=== PATIENT | male | born 1945 | race Two or more races ===

== ENCOUNTER 2022-01-31 17:23 | Inpatient (IN) | payer OTHER ==
[~2022-01-31] VITALS: Ht 152.4 cm; Wt 64.4 kg
[2022-01-31 19:36] LABS: Basophils # (auto) 0 10 ^3/uL (0-0.2); Lymphocytes # (auto) 1.1 10 ^3/uL (0.4-5.4); Lymphocytes % (auto) 20.9 % (10.0-50.0); Nucleated Red Blood Cells % 0.1 %
[2022-01-31 19:37] LABS: Basophils % (auto) 0.5 % (0.0-2.0); Eosinophils # (auto) 0.2 10 ^3/uL (0-0.8); Eosinophils % (auto) 4.4 % (0.0-7.0); Hematocrit 37.3 % (41.0-53.0); Mean Corpuscular Hemoglobin 23.7 pg (28.0-32.0); Mean Corpuscular Volume 73.9 fL (80.0-100.0); Monocytes # (auto) 0.5 10 ^3/uL (0-1.3); Monocytes % (auto) 9.9 % (0.0-12.0); Neutrophils # (auto) 3.3 10 ^3/uL (1.6-8.6); Neutrophils % (auto) 64.3 % (37.0-80.0); Red Blood Cells 5.05 10^6/uL (4.5-5.90); White Blood Cell 5.1 10^3/uL (4.4-10.8)
[2022-01-31 19:43] LABS: Red Cell Distribution Width 21.4 % (11.8-14.3)
[2022-01-31 19:48] LABS: Albumin 3.1 g/dL (3.4-5.0); Calcium 8.8 mg/dL (8.5-10.1); Potassium 4.4 mmol/L (3.5-5.1)
[2022-01-31 19:54] LABS: BUN/Creatinine Ratio 21.8; Bilirubin, Total 0.5 mg/dL (0.2-1.0); Total Protein 7.8 g/dL (6.4-8.2)
[2022-01-31 20:07] LABS: INR 1.12 (0.9-1.15); Partial Thromboplastin Time 29.1 sec (23.6-33.0)
[2022-01-31] MEDS ORDERED: ASPirin 81 mg TAB PO ONE (20:15)
[2022-01-31] MEDS ORDERED: cefTRIAXone 1GM/50ML D5W 50 ML IV ONE (20:15)
[2022-01-31] MEDS ORDERED: AZITHROMYCIN 250 MG TAB PO ONE (20:15)
[2022-01-31] MEDS ORDERED: IOHEXOL 350 MG/ML 100ML IJ ONE ×2 (20:16→22:24)
[2022-01-31] MEDS ORDERED: LIDOCAINE 2%HCL (LOCAL ANESTH.) INJ 10ml MDV ONE (22:24)
[2022-01-31] MEDS ORDERED: ATROPINE SULF 1 MG/10ml SYR ONE (22:36)
[2022-01-31] MEDS ORDERED: fentaNYL CITRATE 100 MCG/2 ML VL ONE (22:36)
[2022-01-31] MEDS ORDERED: ANGIOMAX 250 MG VIAL IV ONE ×2 (22:36→23:55)
[2022-01-31] MEDS ORDERED: EPINEPHrine HCL 1 MG/10 ML SYRG ONE (22:37)
[2022-01-31] MEDS ORDERED: IODIXANOL 320MG/ML 100ML BTL IV ONE (22:37)
[2022-01-31] MEDS ORDERED: MIDAZOLAM HCL 2MG/2ML 2ml VIAL (1mg/ml) ONE (22:37)
[2022-01-31] MEDS ORDERED: SODIUM CHL 0.9% 50 ML ONE ×2 (22:37→23:55)
[2022-01-31 22:38] LABS: Urine Bacteria NONE SEEN /hpf (None Seen); Urine Blood Negative /uL (Negative); Urine Specific Gravity 1.037 (1.001-1.035); Urine WBC 2 /hpf (0 - 3)
[2022-02-01] MEDS ORDERED: CLOPIDOGREL 300 MG TAB ONE (00:15)
[2022-02-01] MEDS ORDERED: ONDANSETRON HCL 4 MG/2 ML VIAL IV PRN (00:45)
[2022-02-01] MEDS ORDERED: ACETAMINOPHEN 500 MG TAB PO PRN (00:45)
[2022-02-01] MEDS ORDERED: DEXTROSE (50%) 50ML SYRG IV PRN (00:45)
[2022-02-01] MEDS ORDERED: SOD CHL 0.45% 1,000 ML IV SCH (00:45)
[2022-02-01] MEDS ORDERED: HYDROcodone-ACET 5/325MG TAB PO PRN (00:45)
[2022-02-01] MEDS ORDERED: cefTRIAXone 1GM/50ML D5W 50 ML IV SCH ×2 (01:30→15:30)
[2022-02-01] MEDS ORDERED: hydrALAZINE HCL 20 MG/ML VL IV PRN (01:45)
[2022-02-01] MEDS ORDERED: AZITHROMYCIN 500MG/ 250ML 250 ML IV SCH (02:00)
[2022-02-01 05:47] VITALS: BP 140/90
[2022-02-01 06:25] LABS: Basophils # (auto) 0 10 ^3/uL (0-0.2); Eosinophils # (auto) 0.1 10 ^3/uL (0-0.8)
[2022-02-01 06:29] LABS: Basophils % (auto) 0.4 % (0.0-2.0); Eosinophils % (auto) 2.7 % (0.0-7.0); Hematocrit 36.3 % (41.0-53.0); Lymphocytes # (auto) 0.8 10 ^3/uL (0.4-5.4); Lymphocytes % (auto) 17.2 % (10.0-50.0); Mean Corpuscular Hemoglobin 23.9 pg (28.0-32.0); Mean Corpuscular Hgb Conc. 32.5 g/dL (32.0-36.0); Monocytes # (auto) 0.5 10 ^3/uL (0-1.3); Monocytes % (auto) 10.1 % (0.0-12.0); Neutrophils # (auto) 3.3 10 ^3/uL (1.6-8.6); Neutrophils % (auto) 69.6 % (37.0-80.0); Nucleated Red Blood Cells % 0.5 %; Red Blood Cells 4.94 10^6/uL (4.5-5.90); White Blood Cell 4.8 10^3/uL (4.4-10.8)
[2022-02-01 06:36] LABS: Red Cell Distribution Width 21.4 % (11.8-14.3)
[2022-02-01 06:37] LABS: Hemoglobin 11.8 g/dL (13.5-17.5); Mean Corpuscular Volume 73.5 fL (80.0-100.0)
[2022-02-01] MEDS: ACCU-CHEK COMFORT CURVE STRIP VI SCH ×4 (06:54→21:47)
[2022-02-01] MEDS: InsuLIN REG 1unit/0.01ml Soln (100units/ml) SC SCH ×3 (06:58→16:58)
[2022-02-01 08:15] LABS: Albumin 2.8 g/dL (3.4-5.0); BUN/Creatinine Ratio 23.2; Calcium 8.7 mg/dL (8.5-10.1); Potassium 4.8 mmol/L (3.5-5.1)
[2022-02-01 08:18] LABS: Bilirubin, Total 0.5 mg/dL (0.2-1.0); Total Protein 7.6 g/dL (6.4-8.2)
[2022-02-01 08:40] VITALS: BP 135/81
[2022-02-01] MEDS: ATORVASTATIN 20 MG TAB PO SCH (10:38)
[2022-02-01] MEDS: METOPROLOL TARTRATE 25 MG TAB PO SCH (10:39)
[2022-02-01] MEDS: ASPirin 81 mg TAB PO SCH (10:40)
[2022-02-01] MEDS: FUROSEMIDE 20 MG/2 ML VIAL IV SCH (10:41)
[2022-02-01] MEDS: PANTOPRAZOLE 40 MG TAB PO SCH ×2 (10:42→21:47)
[2022-02-01] MEDS: CLOPIDOGREL BISULFATE 75 MG TAB PO SCH (10:42)
[2022-02-01] MEDS ORDERED: TAMS0.4C36 PO (11:44)
[2022-02-01] MEDS ORDERED: AML5T PO (11:44)
[2022-02-01] MEDS ORDERED: METF-371 PO (11:46)
[2022-02-01] MEDS ORDERED: ENAL10TA12 PO (11:46)
[2022-02-01] MEDS ORDERED: CYA100I PO (11:47)
[2022-02-01 12:40] VITALS: BP 130/78
[2022-02-01 17:00] VITALS: BP 115/72
[2022-02-01] MEDS ORDERED: TAMSULOSIN HYDROCHLORIDE 0.4 MG CAP PO SCH (18:00)
[2022-02-01 21:56] VITALS: BP 127/71
[2022-02-01] MEDS ORDERED: InsuLIN REG 1unit/0.01ml Soln (100units/ml) SC SCH (22:00)
[2022-02-02] MEDS ORDERED: AZITHROMYCIN 500MG/ 250ML 250 ML IV SCH (04:00)
[2022-02-02 04:43] VITALS: BP 130/76
[2022-02-02 06:21] LABS: Basophils # (auto) 0 10 ^3/uL (0-0.2); Basophils % (auto) 0.6 % (0.0-2.0); Eosinophils # (auto) 0.3 10 ^3/uL (0-0.8); Hemoglobin 12.2 g/dL (13.5-17.5); Monocytes # (auto) 0.5 10 ^3/uL (0-1.3); Neutrophils # (auto) 2.5 10 ^3/uL (1.6-8.6); White Blood Cell 4.5 10^3/uL (4.4-10.8)
[2022-02-02 06:23] LABS: Eosinophils % (auto) 7.1 % (0.0-7.0); Hematocrit 37.5 % (41.0-53.0); Lymphocytes # (auto) 1.2 10 ^3/uL (0.4-5.4); Lymphocytes % (auto) 25.5 % (10.0-50.0); Mean Corpuscular Hemoglobin 23.9 pg (28.0-32.0); Mean Corpuscular Hgb Conc. 32.6 g/dL (32.0-36.0); Mean Corpuscular Volume 73.5 fL (80.0-100.0); Monocytes % (auto) 10.7 % (0.0-12.0); Neutrophils % (auto) 56.1 % (37.0-80.0); Nucleated Red Blood Cells % 0.1 %; Red Blood Cells 5.09 10^6/uL (4.5-5.90); Red Cell Distribution Width 21.5 % (11.8-14.3)
[2022-02-02] MEDS: ACCU-CHEK COMFORT CURVE STRIP VI SCH ×3 (06:31→17:25)
[2022-02-02] MEDS: InsuLIN REG 1unit/0.01ml Soln (100units/ml) SC SCH ×3 (06:33→17:33)
[2022-02-02 09:00] VITALS: BP 119/67
[2022-02-02] MEDS: ATORVASTATIN 20 MG TAB PO SCH (10:00)
[2022-02-02 10:11] LABS: Potassium 3.5 mmol/L (3.5-5.1)
[2022-02-02 10:12] LABS: Albumin 2.9 g/dL (3.4-5.0); BUN/Creatinine Ratio 22.9; Bilirubin, Total 0.5 mg/dL (0.2-1.0); Calcium 8.5 mg/dL (8.5-10.1); Total Protein 7.1 g/dL (6.4-8.2)
[2022-02-02] MEDS: CLOPIDOGREL BISULFATE 75 MG TAB PO SCH (10:30)
[2022-02-02] MEDS: FUROSEMIDE 20 MG/2 ML VIAL IV SCH (10:30)
[2022-02-02] MEDS: ASPirin 81 mg TAB PO SCH (10:30)
[2022-02-02] MEDS: PANTOPRAZOLE 40 MG TAB PO SCH (10:30)
[2022-02-02] MEDS: METOPROLOL TARTRATE 25 MG TAB PO SCH (10:30)
[2022-02-02] MEDS ORDERED: FUROSEMIDE 20 MG/2 ML VIAL IV ONE (11:30)
[2022-02-02] MEDS ORDERED: POTASSIUM CHL 20 Meq TABLET PO ONE (11:30)
[2022-02-02] MEDS ORDERED: ATOR20TA50 PO (11:39)
[2022-02-02] MEDS ORDERED: ASPI1CHW15 PO (11:39)
[2022-02-02] MEDS ORDERED: CLOP75TA70 PO (11:39)
[2022-02-02] MEDS ORDERED: METO25TA36 PO (11:47)
[2022-02-02] MEDS ORDERED: POTA1TAB4 PO (11:47)
[2022-02-02] MEDS ORDERED: FURO1TAB33 PO (11:47)
[2022-02-02 13:52] VITALS: BP 126/72
[2022-02-02 17:11] VITALS: BP 121/68
== END 2022-02-02 17:30 | disposition home or self-care (01) | DRG 246 ==
LOC: ER 17:23 → TELE 02-01 00:34 → TELE-EAST 02-01 01:47
PROVIDERS: ADMIT Specialist; ATTEND Internal Medicine
PROC: 027135Z Dilation of Coronary Artery, Two Arteries with Two Drug-eluting Intraluminal Devices, Percutaneous Approach (ICD-10-PCS; principal; 2022-01-31)
PROC: B241ZZ3 Ultrasonography of Multiple Coronary Arteries, Intravascular (ICD-10-PCS; 2022-01-31)
PROC: 4A023N7 Measurement of Cardiac Sampling and Pressure, Left Heart, Percutaneous Approach (ICD-10-PCS; 2022-01-31)
PROC: B41F0ZZ Fluoroscopy of Right Lower Extremity Arteries using High Osmolar Contrast (ICD-10-PCS; 2022-01-31)
PROC: B41FYZZ Fluoroscopy of Right Lower Extremity Arteries using Other Contrast (ICD-10-PCS; 2022-01-31)
PROC: B2111ZZ Fluoroscopy of Multiple Coronary Arteries using Low Osmolar Contrast (ICD-10-PCS; 2022-01-31)
PROC: 02703ZZ Dilation of Coronary Artery, One Artery, Percutaneous Approach (ICD-10-PCS; 2022-02-01)
DX: I21.3 ST elevation (STEMI) myocardial infarction of unspecified site (principal); I50.41 Acute combined systolic (congestive) and diastolic (congestive) heart failure; E11.9 Type 2 diabetes mellitus without complications; N40.0 Benign prostatic hyperplasia without lower urinary tract symptoms; K74.60 Unspecified cirrhosis of liver; Z20.822 Contact with and (suspected) exposure to COVID-19; I11.0 Hypertensive heart disease with heart failure; Z79.84 Long term (current) use of oral hypoglycemic drugs
CPT/HCPCS: 36415; 71045; 71275; 75710; 76705; 80053; 81001; 82962; 83036; 83880; 84484; 85025; 85610; 85730; 86850; 86900; 86901; 92920; 92928; 92929; 92978; 93005; 93306; 93458; 96361; 96365; 96372; 96375; 99152; 99153; C1874; C1887; G0378; J0696; J1815; J2001; J2250; Q9967

== ENCOUNTER 2022-05-22 09:53 | Inpatient (IN) | payer OTHER ==
[~2022-05-22] VITALS: Ht 167.6 cm; Wt 65.9 kg
[~2022-05-22 09:53] MED LIST: AML5T PO; ASPI1CHW15 PO; ATOR20TA50 PO; CLOP75TA70 PO; CYA100I PO; ENAL10TA12 PO; METF-371 PO; METO25TA36 PO; POTA1TAB4 PO; TAMS0.4C36 PO
[2022-05-22] MEDS ORDERED: LACTATED RINGER'S 1,000 ML IV ONE (10:15)
[2022-05-22 10:29] LABS: Basophils # (auto) 0 10 ^3/uL (0-0.2); Basophils % (auto) 0.3 % (0.0-2.0); Eosinophils # (auto) 0.1 10 ^3/uL (0-0.8); Hemoglobin 10.6 g/dL (13.5-17.5); Neutrophils % (auto) 85.6 % (37.0-80.0)
[2022-05-22 10:31] LABS: Eosinophils % (auto) 1.6 % (0.0-7.0); Hematocrit 33.5 % (41.0-53.0); Lymphocytes # (auto) 0.5 10 ^3/uL (0.4-5.4); Lymphocytes % (auto) 7.1 % (10.0-50.0); Mean Corpuscular Hemoglobin 25.7 pg (28.0-32.0); Mean Corpuscular Hgb Conc. 31.6 g/dL (32.0-36.0); Mean Corpuscular Volume 81.1 fL (80.0-100.0); Monocytes # (auto) 0.3 10 ^3/uL (0-1.3); Monocytes % (auto) 5.4 % (0.0-12.0); Neutrophils # (auto) 5.5 10 ^3/uL (1.6-8.6); Red Blood Cells 4.13 10^6/uL (4.5-5.90); White Blood Cell 6.5 10^3/uL (4.4-10.8)
[2022-05-22 10:34] LABS: Red Cell Distribution Width 26.2 % (11.8-14.3)
[2022-05-22 10:40] LABS: Albumin 2.9 g/dL (3.4-5.0); Calcium 8.7 mg/dL (8.5-10.1); Potassium 4.4 mmol/L (3.5-5.1)
[2022-05-22 10:46] LABS: BUN/Creatinine Ratio 16.2; Bilirubin, Total 0.8 mg/dL (0.2-1.0)
[2022-05-22 12:50] LABS: Urine Bacteria NONE SEEN /hpf (None Seen); Urine Blood Negative /uL (Negative); Urine Mucus FEW (None Seen); Urine Specific Gravity 1.028 (1.001-1.035); Urine WBC 1 /hpf (0 - 3)
[2022-05-22] MEDS ORDERED: AZITHROMYCIN 250 MG TAB PO ONE (13:15)
[2022-05-22] MEDS ORDERED: AMOXICILLIN/CLAVUL 875 MG TAB PO ONE (13:15)
[2022-05-22] MEDS ORDERED: DEXTROSE (50%) 50ML SYRG IV PRN (13:30)
[2022-05-22] MEDS ORDERED: MORPHINE SULFATE INJ 2 MG/ml SYRG IV PRN ×2 (13:30)
[2022-05-22] MEDS ORDERED: NITROGLYCERIN 0.4 MG SL TAB SL PRN (13:30)
[2022-05-22] MEDS ORDERED: FUROSEMIDE 40 MG/4 ML VIAL IV ONE (13:45)
[2022-05-22] MEDS: ACCU-CHEK COMFORT CURVE STRIP VI SCH ×2 (17:13→22:04)
[2022-05-22] MEDS: InsuLIN REG 1unit/0.01ml Soln (100units/ml) SC SCH ×2 (17:28→22:13)
[2022-05-22] MEDS ORDERED: INSULIN LANTUS (GLARGINE) 1 /0.01ml (100units/ml) SC SCH (22:00)
[2022-05-23 05:33] LABS: Calcium 8.6 mg/dL (8.5-10.1); Potassium 4.2 mmol/L (3.5-5.1)
[2022-05-23 05:40] LABS: Albumin 2.7 g/dL (3.4-5.0); BUN/Creatinine Ratio 30.2; Bilirubin, Total 0.4 mg/dL (0.2-1.0); Total Protein 6.8 g/dL (6.4-8.2)
[2022-05-23 05:43] LABS: Basophils # (auto) 0 10 ^3/uL (0-0.2); Eosinophils # (auto) 0.2 10 ^3/uL (0-0.8); Lymphocytes # (auto) 0.7 10 ^3/uL (0.4-5.4); Lymphocytes % (auto) 11.6 % (10.0-50.0); Mean Corpuscular Hemoglobin 25.9 pg (28.0-32.0); Mean Corpuscular Hgb Conc. 32.4 g/dL (32.0-36.0); Neutrophils # (auto) 4.3 10 ^3/uL (1.6-8.6); White Blood Cell 5.7 10^3/uL (4.4-10.8)
[2022-05-23 05:46] LABS: Basophils % (auto) 0.4 % (0.0-2.0); Eosinophils % (auto) 4.3 % (0.0-7.0); Hematocrit 31.2 % (41.0-53.0); Hemoglobin 10.1 g/dL (13.5-17.5); Mean Corpuscular Volume 79.8 fL (80.0-100.0); Monocytes # (auto) 0.4 10 ^3/uL (0-1.3); Monocytes % (auto) 7.8 % (0.0-12.0); Neutrophils % (auto) 75.9 % (37.0-80.0); Red Blood Cells 3.91 10^6/uL (4.5-5.90)
[2022-05-23 06:03] LABS: Red Cell Distribution Width 25.7 % (11.8-14.3)
[2022-05-23] MEDS: ACCU-CHEK COMFORT CURVE STRIP VI SCH ×4 (07:52→22:10)
[2022-05-23] MEDS: POTASSIUM CHL 20 Meq TABLET PO SCH (08:04)
[2022-05-23] MEDS: InsuLIN REG 1unit/0.01ml Soln (100units/ml) SC SCH ×4 (08:05→22:00)
[2022-05-23] MEDS: FUROSEMIDE 40 MG/4 ML VIAL IV SCH (08:53)
[2022-05-23] MEDS: ATORVASTATIN 20 MG TAB PO SCH (08:54)
[2022-05-23] MEDS: TAMSULOSIN HYDROCHLORIDE 0.4 MG CAP PO SCH (08:55)
[2022-05-23] MEDS: ENALAPRIL MALEATE 10 MG TAB PO SCH (08:56)
[2022-05-23] MEDS: ASPirin-EC 81 mg tab PO SCH (08:57)
[2022-05-23] MEDS: amLODIPine BESYLATE 5 MG TAB PO SCH (08:58)
[2022-05-23] MEDS: CLOPIDOGREL BISULFATE 75 MG TAB PO SCH (08:59)
[2022-05-23] MEDS: cefTRIAXone 1GM/50ML D5W 50 ML IV SCH (09:00)
[2022-05-23] MEDS: METOPROLOL SUCCINATE XL 50 MG TAB PO SCH (09:03)
[2022-05-23 10:27] VITALS: BP 128/68
[2022-05-23] MEDS: AZITHROMYCIN 500MG/ 250ML 250 ML IV SCH (10:30)
[2022-05-23] MEDS ORDERED: FURO20TA3 PO (10:55)
[2022-05-23] MEDS ORDERED: ATOR20TA50 PO (10:55)
[2022-05-23 13:00] VITALS: BP 109/56
[2022-05-23] MEDS ORDERED: InsuLIN REG 1unit/0.01ml Soln (100units/ml) IV ONE (14:45)
[2022-05-23] MEDS ORDERED: INSULIN LANTUS (GLARGINE) 1 /0.01ml (100units/ml) SC ONE (14:45)
[2022-05-23 17:00] VITALS: BP 111/61
[2022-05-23 20:00] VITALS: BP 109/68
[2022-05-23 22:00] VITALS: BP_SYST 109; BP_SYST 123; BP_DIAS 68; BP_DIAS 77
[2022-05-24 05:00] VITALS: BP 108/61
[2022-05-24] MEDS: POTASSIUM CHL 20 Meq TABLET PO SCH (06:30)
[2022-05-24] MEDS: ACCU-CHEK COMFORT CURVE STRIP VI SCH ×2 (06:31→12:15)
[2022-05-24] MEDS: InsuLIN REG 1unit/0.01ml Soln (100units/ml) SC SCH ×2 (06:33→12:15)
[2022-05-24 08:00] VITALS: BP 109/68
[2022-05-24] MEDS: cefTRIAXone 1GM/50ML D5W 50 ML IV SCH (08:49)
[2022-05-24 09:00] VITALS: BP 109/55
[2022-05-24] MEDS: ATORVASTATIN 20 MG TAB PO SCH (09:10)
[2022-05-24] MEDS: ASPirin-EC 81 mg tab PO SCH (09:10)
[2022-05-24] MEDS: CLOPIDOGREL BISULFATE 75 MG TAB PO SCH (09:10)
[2022-05-24] MEDS: TAMSULOSIN HYDROCHLORIDE 0.4 MG CAP PO SCH (09:10)
[2022-05-24] MEDS: AZITHROMYCIN 500MG/ 250ML 250 ML IV SCH (10:15)
[2022-05-24] MEDS: FUROSEMIDE 40 MG/4 ML VIAL IV SCH ×2 (10:15→10:17)
[2022-05-24] MEDS: METOPROLOL SUCCINATE XL 50 MG TAB PO SCH (10:17)
[2022-05-24] MEDS: amLODIPine BESYLATE 5 MG TAB PO SCH (10:32)
[2022-05-24] MEDS: ENALAPRIL MALEATE 10 MG TAB PO SCH (10:33)
[2022-05-24] MEDS ORDERED: AZIT250T8 PO (13:19)
[2022-05-24 14:00] VITALS: BP 120/71
[2022-05-24 16:12] VITALS: BP 120/71
[2022-05-24] MEDS ORDERED: INSULIN LANTUS (GLARGINE) 1 /0.01ml (100units/ml) SC SCH (22:00)
== END 2022-05-24 17:39 | disposition home or self-care (01) | DRG 291 ==
LOC: ER 09:53 → TELE 13:33 → TELE-WESTW 05-23 10:33
PROVIDERS: ADMIT Registered Nurse; ATTEND Internal Medicine
DX: I13.0 Hypertensive heart and chronic kidney disease with heart failure and stage 1 through stage 4 chronic kidney disease, or unspecified chronic kidney disease (principal); I50.33 Acute on chronic diastolic (congestive) heart failure; J18.9 Pneumonia, unspecified organism; E87.3 Alkalosis; N18.2 Chronic kidney disease, stage 2 (mild); E78.5 Hyperlipidemia, unspecified; Z20.822 Contact with and (suspected) exposure to COVID-19; E11.65 Type 2 diabetes mellitus with hyperglycemia; E86.0 Dehydration; R09.89 Other specified symptoms and signs involving the circulatory and respiratory systems; E88.09 Other disorders of plasma-protein metabolism, not elsewhere classified; D64.9 Anemia, unspecified; E11.22 Type 2 diabetes mellitus with diabetic chronic kidney disease; I25.10 Atherosclerotic heart disease of native coronary artery without angina pectoris; Z95.5 Presence of coronary angioplasty implant and graft
CPT/HCPCS: 36415; 36600; 71045; 80053; 81001; 82010; 82805; 82962; 83735; 83880; 84484; 85025; 87040; 93005; 96360; G0378; J0696; J1815

== ENCOUNTER 2023-01-08 12:27 | Inpatient (IN) | payer OTHER ==
[~2023-01-08] VITALS: Ht 170.2 cm; Wt 66.2 kg
[~2023-01-08 12:27] MED LIST changes: +AZIT250T8 PO; -ENAL10TA12 PO; +FURO20TA3 PO
[2023-01-08 13:37] LABS: Basophils # (auto) 0 10 ^3/uL (0-0.2); Eosinophils # (auto) 0.1 10 ^3/uL (0-0.8); Eosinophils % (auto) 2.2 % (0.0-7.0); Lymphocytes # (auto) 0.5 10 ^3/uL (0.4-5.4); Monocytes # (auto) 0.3 10 ^3/uL (0-1.3); Monocytes % (auto) 6.5 % (0.0-12.0); Neutrophils # (auto) 3.1 10 ^3/uL (1.6-8.6)
[2023-01-08 13:40] LABS: Basophils % (auto) 0.8 % (0.0-2.0); Hematocrit 35.8 % (41.0-53.0); Hemoglobin 11.3 g/dL (13.5-17.5); Mean Corpuscular Hemoglobin 26.2 pg (28.0-32.0); Mean Corpuscular Hgb Conc. 31.6 g/dL (32.0-36.0); Neutrophils % (auto) 77.5 % (37.0-80.0); Nucleated Red Blood Cells % 0.3 %; Red Blood Cells 4.32 10^6/uL (4.5-5.90)
[2023-01-08 14:00] LABS: Albumin 3.1 g/dL (3.4-5.0); BUN/Creatinine Ratio 25.6 (10.0-20.0); Calcium 8.9 mg/dL (8.5-10.1); Potassium 4.5 mmol/L (3.5-5.1)
[2023-01-08 14:03] LABS: Bilirubin, Total 0.6 mg/dL (0.2-1.0); Total Protein 7.5 g/dL (6.4-8.2)
[2023-01-08 14:25] LABS: Red Cell Distribution Width 21.8 % (11.8-14.3)
[2023-01-08] MEDS ORDERED: ENOXAPARIN SOD 80 MG/0.8ML SYRINGE SC ONE (18:15)
[2023-01-08] MEDS ORDERED: ACETAMINOPHEN 325 MG TAB PO PRN (18:45)
[2023-01-08] MEDS ORDERED: MORPHINE SULFATE INJ 2 MG/ml SYRG IV PRN ×2 (18:45)
[2023-01-08] MEDS ORDERED: ASPirin 325 MG TAB PO ONE (18:45)
[2023-01-08] MEDS ORDERED: HYDROcodone-ACET 5/325MG TAB PO PRN (18:45)
[2023-01-08] MEDS ORDERED: DEXTROSE (50%) 50ML SYRG IV PRN (18:45)
[2023-01-08] MEDS ORDERED: hydrALAZINE HCL 20 MG/ML VL IV PRN (18:45)
[2023-01-08] MEDS ORDERED: NITROGLYCERIN 0.4 MG SL TAB SL PRN (18:45)
[2023-01-08 19:48] LABS: Urine Bacteria NONE SEEN /hpf (None Seen); Urine Blood 1+ /uL (Negative); Urine Mucus FEW (None Seen); Urine Specific Gravity 1.018 (1.001-1.035); Urine WBC 1 /hpf (0 - 3)
[2023-01-08 19:53] LABS: INR 1.11 (0.9-1.15); Partial Thromboplastin Time 29.3 sec (24.6-33.4)
[2023-01-08] MEDS: ATORVASTATIN 20 MG TAB PO SCH (21:08)
[2023-01-08] MEDS: FUROSEMIDE 40 MG/4 ML VIAL IV SCH (21:09)
[2023-01-08] MEDS: InsuLIN REG 1unit/0.01ml Soln (100units/ml) SC SCH (21:15)
[2023-01-08] MEDS: ACCU-CHEK COMFORT CURVE STRIP VI SCH (21:36)
[2023-01-09] MEDS: FUROSEMIDE 40 MG/4 ML VIAL IV SCH ×2 (06:16→18:25)
[2023-01-09] MEDS: POTASSIUM CHL 20 Meq TABLET PO SCH (06:17)
[2023-01-09 06:18] LABS: Basophils # (auto) 0 10 ^3/uL (0-0.2); Basophils % (auto) 0.5 % (0.0-2.0); Eosinophils # (auto) 0.2 10 ^3/uL (0-0.8); Hematocrit 34.4 % (41.0-53.0); Hemoglobin 11.1 g/dL (13.5-17.5); Lymphocytes # (auto) 0.9 10 ^3/uL (0.4-5.4); Lymphocytes % (auto) 21.9 % (10.0-50.0); Mean Corpuscular Hemoglobin 27.2 pg (28.0-32.0); Mean Corpuscular Hgb Conc. 32.3 g/dL (32.0-36.0); Mean Corpuscular Volume 84.2 fL (80.0-100.0); Monocytes # (auto) 0.4 10 ^3/uL (0-1.3); Monocytes % (auto) 10.3 % (0.0-12.0); Neutrophils # (auto) 2.5 10 ^3/uL (1.6-8.6); Neutrophils % (auto) 62.3 % (37.0-80.0); Nucleated Red Blood Cells % 0.3 %; Red Blood Cells 4.08 10^6/uL (4.5-5.90)
[2023-01-09] MEDS: ACCU-CHEK COMFORT CURVE STRIP VI SCH ×4 (06:18→22:12)
[2023-01-09] MEDS: InsuLIN REG 1unit/0.01ml Soln (100units/ml) SC SCH ×4 (06:18→22:13)
[2023-01-09 06:44] LABS: Calcium 8.9 mg/dL (8.5-10.1); Potassium 3.6 mmol/L (3.5-5.1)
[2023-01-09 06:47] LABS: BUN/Creatinine Ratio 26.4 (10.0-20.0)
[2023-01-09 06:50] LABS: Bilirubin, Total 0.4 mg/dL (0.2-1.0); Total Protein 7.6 g/dL (6.4-8.2)
[2023-01-09 06:54] LABS: Red Cell Distribution Width 21.3 % (11.8-14.3)
[2023-01-09] MEDS ORDERED: ENOXAPARIN SOD 40 MG/0.4 ML SYRINGE SC SCH (10:00)
[2023-01-09] MEDS: ASPirin 81 mg TAB PO SCH (10:21)
[2023-01-09] MEDS: METOPROLOL SUCCINATE XL 50 MG TAB PO SCH (10:22)
[2023-01-09] MEDS: ENOXAPARIN SOD 60 MG/0.6 ML SYRINGE SC SCH ×2 (10:22→22:14)
[2023-01-09] MEDS: amLODIPine BESYLATE 5 MG TAB PO SCH (10:54)
[2023-01-09] MEDS: TAMSULOSIN HYDROCHLORIDE 0.4 MG CAP PO SCH (18:24)
[2023-01-09] MEDS: ATORVASTATIN 20 MG TAB PO SCH (22:13)
[2023-01-10 05:00] VITALS: BP 120/72
[2023-01-10] MEDS: FUROSEMIDE 40 MG/4 ML VIAL IV SCH ×2 (05:51→17:51)
[2023-01-10] MEDS: ACCU-CHEK COMFORT CURVE STRIP VI SCH ×4 (05:51→22:04)
[2023-01-10] MEDS: InsuLIN REG 1unit/0.01ml Soln (100units/ml) SC SCH ×4 (05:53→22:08)
[2023-01-10] MEDS: POTASSIUM CHL 20 Meq TABLET PO SCH (05:53)
[2023-01-10 07:30] VITALS: BP 133/73
[2023-01-10] MEDS ORDERED: fentaNYL CITRATE 100 MCG/2 ML VL IV ONE (07:45)
[2023-01-10] MEDS ORDERED: LIDOCAINE VISCOUS 2% 15ML UD PO ONE (07:45)
[2023-01-10] MEDS ORDERED: ONDANSETRON HCL 4 MG/2 ML VIAL IV ONE (07:45)
[2023-01-10] MEDS ORDERED: MIDAZOLAM HCL 2MG/2ML 2ml VIAL (1mg/ml) IV ONE (07:45)
[2023-01-10] MEDS ORDERED: DOBUTamine 1000MCG/ML 250 ML IV ONE (08:21)
[2023-01-10] MEDS ORDERED: DOBUTamine 1000MCG/ML 100 ML IV ONE (08:30)
[2023-01-10] MEDS: ENOXAPARIN SOD 60 MG/0.6 ML SYRINGE SC SCH ×2 (10:00→22:04)
[2023-01-10] MEDS: amLODIPine BESYLATE 5 MG TAB PO SCH (10:00)
[2023-01-10] MEDS: ASPirin 81 mg TAB PO SCH (10:00)
[2023-01-10] MEDS: METOPROLOL SUCCINATE XL 50 MG TAB PO SCH (10:00)
[2023-01-10 11:27] VITALS: BP 121/58
[2023-01-10 12:30] VITALS: BP 119/77
[2023-01-10 17:00] VITALS: BP 127/72
[2023-01-10] MEDS: TAMSULOSIN HYDROCHLORIDE 0.4 MG CAP PO SCH (17:51)
[2023-01-10 22:00] VITALS: BP 119/63
[2023-01-10] MEDS: ATORVASTATIN 20 MG TAB PO SCH (22:04)
[2023-01-11 05:00] VITALS: BP 138/60
[2023-01-11] MEDS: POTASSIUM CHL 20 Meq TABLET PO SCH (06:31)
[2023-01-11] MEDS: ACCU-CHEK COMFORT CURVE STRIP VI SCH ×4 (06:31→22:07)
[2023-01-11] MEDS: FUROSEMIDE 40 MG/4 ML VIAL IV SCH ×2 (06:31→08:28)
[2023-01-11] MEDS: InsuLIN REG 1unit/0.01ml Soln (100units/ml) SC SCH ×4 (06:46→22:09)
[2023-01-11 08:47] VITALS: BP 95/65
[2023-01-11 09:06] LABS: Basophils # (auto) 0 10 ^3/uL (0-0.2); Eosinophils # (auto) 0.2 10 ^3/uL (0-0.8); Lymphocytes # (auto) 0.8 10 ^3/uL (0.4-5.4); Mean Corpuscular Hemoglobin 26.7 pg (28.0-32.0); Monocytes # (auto) 0.4 10 ^3/uL (0-1.3); Neutrophils # (auto) 2.4 10 ^3/uL (1.6-8.6); White Blood Cell 3.8 10^3/uL (4.4-10.8)
[2023-01-11 09:09] LABS: Basophils % (auto) 1.2 % (0.0-2.0); Eosinophils % (auto) 4.2 % (0.0-7.0); Hematocrit 36.7 % (41.0-53.0); Hemoglobin 11.9 g/dL (13.5-17.5); Lymphocytes % (auto) 20.7 % (10.0-50.0); Mean Corpuscular Hgb Conc. 32.4 g/dL (32.0-36.0); Mean Corpuscular Volume 82.4 fL (80.0-100.0); Monocytes % (auto) 9.8 % (0.0-12.0); Neutrophils % (auto) 64.1 % (37.0-80.0); Nucleated Red Blood Cells % 0.3 %; Red Blood Cells 4.45 10^6/uL (4.5-5.90)
[2023-01-11 09:17] LABS: Red Cell Distribution Width 20.8 % (11.8-14.3)
[2023-01-11 09:27] LABS: Albumin 3.1 g/dL (3.4-5.0); Calcium 8.9 mg/dL (8.5-10.1); Magnesium 2.3 mg/dL (1.6-2.6); Potassium 3.7 mmol/L (3.5-5.1)
[2023-01-11 09:30] LABS: BUN/Creatinine Ratio 23.9 (10.0-20.0); Bilirubin, Total 0.5 mg/dL (0.2-1.0); Total Protein 7.7 g/dL (6.4-8.2)
[2023-01-11] MEDS: METOPROLOL SUCCINATE XL 50 MG TAB PO SCH (10:00)
[2023-01-11] MEDS: ENOXAPARIN SOD 60 MG/0.6 ML SYRINGE SC SCH ×2 (10:00→21:51)
[2023-01-11] MEDS: ASPirin 81 mg TAB PO SCH (10:00)
[2023-01-11] MEDS: amLODIPine BESYLATE 5 MG TAB PO SCH (10:00)
[2023-01-11 12:55] VITALS: BP 108/64
[2023-01-11 16:18] VITALS: BP 110/67
[2023-01-11] MEDS: TAMSULOSIN HYDROCHLORIDE 0.4 MG CAP PO SCH (18:25)
[2023-01-11] MEDS: ATORVASTATIN 20 MG TAB PO SCH (21:51)
[2023-01-11 22:00] VITALS: BP 113/68
[2023-01-12] VITALS (10 sets, daily range): BP systolic 101–126; BP diastolic 54–72
[2023-01-12] MEDS: ACCU-CHEK COMFORT CURVE STRIP VI SCH ×4 (06:13→21:17)
[2023-01-12] MEDS: InsuLIN REG 1unit/0.01ml Soln (100units/ml) SC SCH ×4 (06:13→21:16)
[2023-01-12] MEDS: POTASSIUM CHL 20 Meq TABLET PO SCH (06:14)
[2023-01-12] MEDS: amLODIPine BESYLATE 5 MG TAB PO SCH (10:00)
[2023-01-12] MEDS: ENOXAPARIN SOD 60 MG/0.6 ML SYRINGE SC SCH ×2 (10:00→21:12)
[2023-01-12] MEDS: METOPROLOL SUCCINATE XL 50 MG TAB PO SCH (10:00)
[2023-01-12] MEDS: ASPirin 81 mg TAB PO SCH (10:00)
[2023-01-12] MEDS: FUROSEMIDE 40 MG/4 ML VIAL IV SCH (10:00)
[2023-01-12] MEDS ORDERED: IODIXANOL 320MG/ML 100ML BTL IV ONE (10:42)
[2023-01-12] MEDS ORDERED: LIDOCAINE 2%HCL (LOCAL ANESTH.) INJ 20ML MDV ONE (10:42)
[2023-01-12] MEDS ORDERED: fentaNYL CITRATE 100 MCG/2 ML VL ONE (10:48)
[2023-01-12] MEDS ORDERED: HEPARIN SODIUM (PORCINE) 5000 UNITS/ML 1ML VIAL ONE (10:48)
[2023-01-12] MEDS ORDERED: SODIUM CHL 0.9% 0 ML ONE (10:48)
[2023-01-12] MEDS ORDERED: ANGIOMAX 250 MG VIAL IV ONE (10:48)
[2023-01-12] MEDS ORDERED: MIDAZOLAM HCL 2MG/2ML 2ml VIAL (1mg/ml) ONE (10:48)
[2023-01-12] MEDS ORDERED: VERAPAMIL 2.5MG/ML INJ 2ML VIAL IV ONE (10:48)
[2023-01-12] MEDS: TAMSULOSIN HYDROCHLORIDE 0.4 MG CAP PO SCH (17:11)
[2023-01-12] MEDS: ATORVASTATIN 20 MG TAB PO SCH (21:12)
[2023-01-13 05:00] VITALS: BP 121/71
[2023-01-13] MEDS: POTASSIUM CHL 20 Meq TABLET PO SCH (06:25)
[2023-01-13] MEDS: InsuLIN REG 1unit/0.01ml Soln (100units/ml) SC SCH ×4 (06:25→22:12)
[2023-01-13] MEDS: ACCU-CHEK COMFORT CURVE STRIP VI SCH ×4 (06:26→22:05)
[2023-01-13 09:00] VITALS: BP 120/74
[2023-01-13] MEDS: METOPROLOL SUCCINATE XL 50 MG TAB PO SCH (10:53)
[2023-01-13] MEDS: ASPirin 81 mg TAB PO SCH (10:53)
[2023-01-13] MEDS: FUROSEMIDE 40 MG/4 ML VIAL IV SCH (10:53)
[2023-01-13] MEDS: amLODIPine BESYLATE 5 MG TAB PO SCH (10:53)
[2023-01-13] MEDS: ENOXAPARIN SOD 60 MG/0.6 ML SYRINGE SC SCH ×2 (10:54→22:05)
[2023-01-13 13:00] VITALS: BP 111/66
[2023-01-13 16:53] VITALS: BP 116/62
[2023-01-13] MEDS: TAMSULOSIN HYDROCHLORIDE 0.4 MG CAP PO SCH (17:53)
[2023-01-13 22:00] VITALS: BP 109/68
[2023-01-13] MEDS: ATORVASTATIN 20 MG TAB PO SCH (22:05)
[2023-01-14 05:00] VITALS: BP 100/58
[2023-01-14] MEDS: ACCU-CHEK COMFORT CURVE STRIP VI SCH ×4 (07:13→21:58)
[2023-01-14] MEDS: POTASSIUM CHL 20 Meq TABLET PO SCH (07:13)
[2023-01-14] MEDS: InsuLIN REG 1unit/0.01ml Soln (100units/ml) SC SCH ×4 (07:50→21:57)
[2023-01-14 09:00] VITALS: BP 115/70
[2023-01-14] MEDS: FUROSEMIDE 40 MG/4 ML VIAL IV SCH (09:44)
[2023-01-14] MEDS: ENOXAPARIN SOD 60 MG/0.6 ML SYRINGE SC SCH ×2 (09:44→21:58)
[2023-01-14] MEDS: ASPirin 81 mg TAB PO SCH (09:44)
[2023-01-14] MEDS: METOPROLOL SUCCINATE XL 50 MG TAB PO SCH (09:44)
[2023-01-14] MEDS: amLODIPine BESYLATE 5 MG TAB PO SCH (09:45)
[2023-01-14 13:00] VITALS: BP 104/69
[2023-01-14 17:00] VITALS: BP 100/63
[2023-01-14] MEDS: TAMSULOSIN HYDROCHLORIDE 0.4 MG CAP PO SCH (18:18)
[2023-01-14] MEDS: ATORVASTATIN 20 MG TAB PO SCH (21:57)
[2023-01-15 05:00] VITALS: BP 106/56
[2023-01-15] MEDS: POTASSIUM CHL 20 Meq TABLET PO SCH (06:15)
[2023-01-15] MEDS: ACCU-CHEK COMFORT CURVE STRIP VI SCH ×4 (06:16→22:37)
[2023-01-15] MEDS: InsuLIN REG 1unit/0.01ml Soln (100units/ml) SC SCH ×4 (06:16→21:29)
[2023-01-15 09:00] VITALS: BP 105/62
[2023-01-15] MEDS: FUROSEMIDE 40 MG/4 ML VIAL IV SCH (10:02)
[2023-01-15] MEDS: amLODIPine BESYLATE 5 MG TAB PO SCH (10:02)
[2023-01-15] MEDS: ASPirin 81 mg TAB PO SCH (10:03)
[2023-01-15] MEDS: METOPROLOL SUCCINATE XL 50 MG TAB PO SCH (10:03)
[2023-01-15] MEDS: ENOXAPARIN SOD 60 MG/0.6 ML SYRINGE SC SCH ×2 (10:03→21:18)
[2023-01-15 13:00] VITALS: BP 102/64
[2023-01-15 17:00] VITALS: BP 109/67
[2023-01-15] MEDS: TAMSULOSIN HYDROCHLORIDE 0.4 MG CAP PO SCH (18:00)
[2023-01-15] MEDS: ATORVASTATIN 20 MG TAB PO SCH (21:18)
[2023-01-15 22:00] VITALS: BP 98/61
[2023-01-16 05:00] VITALS: BP 98/57
[2023-01-16] MEDS: POTASSIUM CHL 20 Meq TABLET PO SCH (05:53)
[2023-01-16] MEDS: InsuLIN REG 1unit/0.01ml Soln (100units/ml) SC SCH ×4 (05:59→21:20)
[2023-01-16] MEDS: ACCU-CHEK COMFORT CURVE STRIP VI SCH ×4 (05:59→21:20)
[2023-01-16 08:44] VITALS: BP 98/56
[2023-01-16] MEDS: METOPROLOL SUCCINATE XL 50 MG TAB PO SCH (09:25)
[2023-01-16] MEDS: amLODIPine BESYLATE 5 MG TAB PO SCH (09:25)
[2023-01-16] MEDS: ASPirin 81 mg TAB PO SCH (09:26)
[2023-01-16] MEDS: FUROSEMIDE 40 MG/4 ML VIAL IV SCH (09:27)
[2023-01-16] MEDS: ENOXAPARIN SOD 60 MG/0.6 ML SYRINGE SC SCH ×2 (09:28→21:10)
[2023-01-16 12:55] VITALS: BP 106/68
[2023-01-16 17:04] VITALS: BP 108/67
[2023-01-16] MEDS: TAMSULOSIN HYDROCHLORIDE 0.4 MG CAP PO SCH (17:32)
[2023-01-16] MEDS: ATORVASTATIN 20 MG TAB PO SCH (21:10)
[2023-01-16 22:05] LABS: Calcium 8.7 mg/dL (8.5-10.1); Potassium 4.9 mmol/L (3.5-5.1)
[2023-01-16 22:07] LABS: BUN/Creatinine Ratio 29.3 (10.0-20.0)
[2023-01-16 22:28] VITALS: BP 106/58
[2023-01-17 05:11] VITALS: BP 115/57
[2023-01-17] MEDS: POTASSIUM CHL 20 Meq TABLET PO SCH (06:06)
[2023-01-17] MEDS: ACCU-CHEK COMFORT CURVE STRIP VI SCH ×4 (06:06→21:49)
[2023-01-17] MEDS: InsuLIN REG 1unit/0.01ml Soln (100units/ml) SC SCH ×4 (06:14→21:50)
[2023-01-17 09:11] VITALS: BP 100/67
[2023-01-17] MEDS: FUROSEMIDE 40 MG/4 ML VIAL IV SCH (09:32)
[2023-01-17] MEDS: amLODIPine BESYLATE 5 MG TAB PO SCH (09:32)
[2023-01-17] MEDS: ENOXAPARIN SOD 60 MG/0.6 ML SYRINGE SC SCH ×2 (09:32→21:48)
[2023-01-17] MEDS: ASPirin 81 mg TAB PO SCH (09:34)
[2023-01-17] MEDS: METOPROLOL SUCCINATE XL 50 MG TAB PO SCH (09:34)
[2023-01-17 12:26] VITALS: BP 101/65
[2023-01-17 16:30] VITALS: BP 104/58
[2023-01-17] MEDS: TAMSULOSIN HYDROCHLORIDE 0.4 MG CAP PO SCH (17:52)
[2023-01-17 20:00] VITALS: BP 104/64
[2023-01-17] MEDS: ATORVASTATIN 20 MG TAB PO SCH (21:48)
[2023-01-18 00:32] VITALS: BP 104/64
[2023-01-18 05:37] VITALS: BP 118/64
[2023-01-18] MEDS: POTASSIUM CHL 20 Meq TABLET PO SCH (06:03)
[2023-01-18] MEDS: ACCU-CHEK COMFORT CURVE STRIP VI SCH ×3 (06:14→17:02)
[2023-01-18] MEDS: InsuLIN REG 1unit/0.01ml Soln (100units/ml) SC SCH ×3 (06:14→17:18)
[2023-01-18 09:00] VITALS: BP 103/69
[2023-01-18] MEDS: ENOXAPARIN SOD 60 MG/0.6 ML SYRINGE SC SCH (09:34)
[2023-01-18] MEDS: amLODIPine BESYLATE 5 MG TAB PO SCH (09:37)
[2023-01-18] MEDS: FUROSEMIDE 40 MG/4 ML VIAL IV SCH (09:37)
[2023-01-18] MEDS: ASPirin 81 mg TAB PO SCH (09:38)
[2023-01-18] MEDS: METOPROLOL SUCCINATE XL 50 MG TAB PO SCH (09:38)
[2023-01-18 13:00] VITALS: BP 117/65
[2023-01-18 17:08] VITALS: BP 112/68
[2023-01-18] MEDS: TAMSULOSIN HYDROCHLORIDE 0.4 MG CAP PO SCH (17:53)
== END 2023-01-18 19:50 | disposition short-term general hospital (02) | DRG 280 ==
LOC: ER 12:27 → TELE 18:48 → TELE-WESTW 01-09 21:15
PROVIDERS: ADMIT Registered Nurse; ATTEND Internal Medicine Geriatric Medicine
PROC: B24BZZ4 Ultrasonography of Heart with Aorta, Transesophageal (ICD-10-PCS; principal; 2023-01-10)
PROC: B211YZZ Fluoroscopy of Multiple Coronary Arteries using Other Contrast (ICD-10-PCS; 2023-01-12)
DX: I21.4 Non-ST elevation (NSTEMI) myocardial infarction (principal); I50.23 Acute on chronic systolic (congestive) heart failure; E44.1 Mild protein-calorie malnutrition; J90 Pleural effusion, not elsewhere classified; I38 Endocarditis, valve unspecified; I25.10 Atherosclerotic heart disease of native coronary artery without angina pectoris; D63.8 Anemia in other chronic diseases classified elsewhere; E78.5 Hyperlipidemia, unspecified; I11.0 Hypertensive heart disease with heart failure; Z20.822 Contact with and (suspected) exposure to COVID-19; E11.9 Type 2 diabetes mellitus without complications; J44.9 Chronic obstructive pulmonary disease, unspecified; I35.0 Nonrheumatic aortic (valve) stenosis; I25.5 Ischemic cardiomyopathy; I27.20 Pulmonary hypertension, unspecified; I34.0 Nonrheumatic mitral (valve) insufficiency; Z95.2 Presence of prosthetic heart valve; Z98.61 Coronary angioplasty status; Z79.02 Long term (current) use of antithrombotics/antiplatelets; Z79.84 Long term (current) use of oral hypoglycemic drugs; Z87.891 Personal history of nicotine dependence; Z68.22 Body mass index [BMI] 22.0-22.9, adult
CPT/HCPCS: 36415; 71045; 80048; 80053; 81001; 82962; 83735; 83880; 84300; 84484; 85025; 85379; 85610; 85730; 86850; 86900; 86901; 87426; 93005; 93017; 93306; 93312; 93350; 93454; 93970; 96372; 96374; 99152; 99291; G0378; J1815; J2250; J2405; Q9967

== ENCOUNTER 2023-02-01 18:26 | Emergency (ER) | payer OTHER ==
[~2023-02-01] VITALS: Ht 157.5 cm; Wt 65.0 kg
[2023-02-01 19:41] LABS: Eosinophils # (auto) 0.2 10 ^3/uL (0-0.8); Lymphocytes # (auto) 0.5 10 ^3/uL (0.4-5.4); Monocytes # (auto) 0.4 10 ^3/uL (0-1.3); Neutrophils # (auto) 4.9 10 ^3/uL (1.6-8.6)
[2023-02-01 19:44] LABS: Basophils # (auto) 0.1 10 ^3/uL (0-0.2); Basophils % (auto) 1.4 % (0.0-2.0); Eosinophils % (auto) 2.9 % (0.0-7.0); Lymphocytes % (auto) 7.9 % (10.0-50.0); Mean Corpuscular Hgb Conc. 32.3 g/dL (32.0-36.0); Mean Corpuscular Volume 95.8 fL (80.0-100.0); Monocytes % (auto) 6.2 % (0.0-12.0); Neutrophils % (auto) 81.6 % (37.0-80.0); Nucleated Red Blood Cells % 0.2 %; Red Blood Cells 2.19 10^6/uL (4.5-5.90); White Blood Cell 5.9 10^3/uL (4.4-10.8)
[2023-02-01 19:51] LABS: Red Cell Distribution Width 27.2 % (11.8-14.3)
[2023-02-01 19:53] LABS: Hemoglobin 6.8 g/dL (13.5-17.5)
[2023-02-01 19:58] LABS: INR 1.18 (0.9-1.15); Partial Thromboplastin Time 28.6 sec (24.6-33.4)
[2023-02-01 20:05] LABS: Albumin 3.2 g/dL (3.4-5.0); Calcium 8.1 mg/dL (8.5-10.1); Potassium 4.7 mmol/L (3.5-5.1)
[2023-02-01 20:10] LABS: BUN/Creatinine Ratio 22.4 (10.0-20.0); Bilirubin, Total 1.7 mg/dL (0.2-1.0); Total Protein 6.3 g/dL (6.4-8.2)
[2023-02-01 21:00] LABS: Urine Bacteria NONE SEEN /hpf (None Seen); Urine Blood 3+ /uL (Negative); Urine Specific Gravity 1.015 (1.001-1.035); Urine WBC 7 /hpf (0 - 3)
[2023-02-01 22:25] VITALS: BP 124/54
[2023-02-01 22:35] VITALS: BP 122/57
[2023-02-02 00:30] VITALS: BP 133/62
[2023-02-02 03:15] VITALS: BP 105/63
[2023-02-02 03:20] VITALS: BP 132/60
[2023-02-02 03:35] VITALS: BP 128/63
[2023-02-02 06:13] VITALS: BP 142/73
[2023-02-02 06:35] VITALS: BP 146/80
== END 2023-02-02 00:56 | disposition short-term general hospital (02) ==
LOC: ER 18:26
DX: D64.9 Anemia, unspecified (principal); R77.8 Other specified abnormalities of plasma proteins; E11.9 Type 2 diabetes mellitus without complications; I10 Essential (primary) hypertension; Z88.6 Allergy status to analgesic agent; Z88.1 Allergy status to other antibiotic agents; Z79.01 Long term (current) use of anticoagulants
CPT/HCPCS: 36415; 36430; 71045; 80053; 81001; 82962; 84484; 85025; 85610; 85730; 86850; 86900; 86901; 86920; 93005; 99285; P9016

== ENCOUNTER 2023-08-11 14:25 | Emergency (ER) | payer OTHER ==
[~2023-08-11] VITALS: Ht 165.1 cm; Wt 61.4 kg
[~2023-08-11 14:25] MED LIST changes: +ASPI-736 PO; -ASPI1CHW15 PO; +AZIT-81 PO; -AZIT250T8 PO
[2023-08-11 15:34] LABS: Basophils # (auto) 0 10 ^3/uL (0-0.2); Basophils % (auto) 0.8 % (0.0-2.0); Eosinophils # (auto) 0.2 10 ^3/uL (0-0.8); Hemoglobin 7.6 g/dL (13.5-17.5); Lymphocytes # (auto) 0.7 10 ^3/uL (0.4-5.4); Monocytes # (auto) 0.3 10 ^3/uL (0-1.3); Neutrophils # (auto) 2.7 10 ^3/uL (1.6-8.6); Red Cell Distribution Width 18.3 % (11.8-14.3); White Blood Cell 3.9 10^3/uL (4.4-10.8)
[2023-08-11 15:36] LABS: Eosinophils % (auto) 5.5 % (0.0-7.0); Hematocrit 23.1 % (41.0-53.0); Lymphocytes % (auto) 17.3 % (10.0-50.0); Mean Corpuscular Hemoglobin 36.3 pg (28.0-32.0); Mean Corpuscular Hgb Conc. 32.8 g/dL (32.0-36.0); Mean Corpuscular Volume 110.7 fL (80.0-100.0); Monocytes % (auto) 6.9 % (0.0-12.0); Neutrophils % (auto) 69.5 % (37.0-80.0); Nucleated Red Blood Cells % 0.7 %; Red Blood Cells 2.09 10^6/uL (4.5-5.90)
[2023-08-11] MEDS ORDERED: PANTOPRAZOLE 40 MG TAB PO ONE (16:15)
[2023-08-11] MEDS ORDERED: MAALOX PLUS or MAALOX 30 ML PO ONE (16:15)
[2023-08-11 16:36] LABS: Urine Amorphous Crystal FEW /hpf (None Seen); Urine Bacteria FEW /hpf (None Seen); Urine Blood 3+ /uL (Negative); Urine Clarity HAZY (Clear); Urine Color Red (Yellow); Urine Protein, UAD 3+ (Negative); Urine Specific Gravity 1.019 (1.001-1.035); Urine Urobilinogen Normal (Negative); Urine WBC 1 /hpf (0 - 3); Urine pH 8.5 (5.0-8.0)
[2023-08-11 16:42] LABS: Alanine Aminotransferase 39 U/L (7-40); Albumin 3.9 g/dL (3.2-4.8); Aspartate Aminotransferase 165 U/L (13-40); Total Protein 6.8 g/dL (5.7-8.2)
[2023-08-11 16:43] LABS: Chloride 105 mmol/L (98-107); Potassium 4.3 mmol/L (3.5-5.1); Sodium 139 mmol/L (136-145)
[2023-08-11 16:45] LABS: Anion Gap 4 (5-15); Carbon Dioxide 30 mmol/L (20-30)
[2023-08-11 16:46] LABS: Calcium 9.1 mg/dL (8.7-10.4)
[2023-08-11 16:50] LABS: Alkaline Phosphatase 58 U/L (46-116); BUN/Creatinine Ratio 17.1 (10.0-20.0); Blood Urea Nitrogen 18 mg/dL (9-23); Glucose 206 mg/dL (74-106)
[2023-08-11] MEDS ORDERED: traMADol HCL 50 MG TAB PO ONE (19:30)
[2023-08-11 19:44] VITALS: PULSE 85; RESP 18; O2SAT 100
[2023-08-12 02:51] VITALS: BP 126/54; PULSE 69; RESP 14; TEMP 98.6; O2SAT 95
== END 2023-08-12 02:52 | disposition home or self-care (01) ==
LOC: ER 14:25
DX: J44.9 Chronic obstructive pulmonary disease, unspecified (principal); J98.11 Atelectasis; J90 Pleural effusion, not elsewhere classified; E11.9 Type 2 diabetes mellitus without complications
CPT/HCPCS: 36415; 71045; 74176; 76705; 80053; 81001; 83690; 83735; 84484; 85025; 93005

== ENCOUNTER 2023-12-31 14:02 | Inpatient (IN) | payer OTHER ==
[~2023-12-31] VITALS: Ht 157.5 cm; Wt 69.4 kg
[2023-12-31] VITALS (8 sets, daily range): BP systolic 124–137; BP diastolic 68–81; PULSE 76–103; RESP 16–23; TEMP 97.9–98.1; O2SAT 97
[~2023-12-31 14:02] MED LIST changes: +AMIO200T13 PO; -AML5T PO; +APIX5TAB PO; -AZIT-81 PO; -CLOP75TA70 PO; +DOXY-447 PO; +FERR325T20 PO; +FURO1TAB31 PO; -FURO20TA3 PO; -METF-371 PO; +METF-929 PO; -METO25TA36 PO; +NITR-87 PO; +TAMS-35 PO
[2023-12-31] MEDS: SODIUM CHLORIDE 0.9% 500 ML IVB ONE (15:30)
[2023-12-31] MEDS: MORPHINE SULFATE 4 MG/ML SYR/VIAL IV ONE (15:30)
[2023-12-31] MEDS: ONDANSETRON HCL 4 MG/2 ML VIAL IV ONE (15:30)
[2023-12-31 15:37] LABS: Basophils # (auto) 0 10 ^3/uL (0-0.2); Eosinophils # (auto) 0 10 ^3/uL (0-0.8); Lymphocytes # (auto) 0.3 10 ^3/uL (0.4-5.4)
[2023-12-31 15:38] LABS: Basophils % (auto) 0.1 % (0.0-2.0); Eosinophils % (auto) 0.1 % (0.0-7.0); Hematocrit 20.4 % (41.0-53.0); Lymphocytes % (auto) 3.6 % (10.0-50.0); Mean Corpuscular Hemoglobin 32.8 pg (28.0-32.0); Mean Corpuscular Hgb Conc. 30.6 g/dL (32.0-36.0); Mean Corpuscular Volume 107.1 fL (80.0-100.0); Monocytes # (auto) 0.4 10 ^3/uL (0-1.3); Monocytes % (auto) 5.3 % (0.0-12.0); Neutrophils # (auto) 6.9 10 ^3/uL (1.6-8.6); Neutrophils % (auto) 90.9 % (37.0-80.0); Nucleated Red Blood Cells % 0.3 %; Red Cell Distribution Width 19.5 % (11.8-14.3); White Blood Cell 7.6 10^3/uL (4.4-10.8)
[2023-12-31 15:53] LABS: Chloride 104 mmol/L (98-107); Sodium 132 mmol/L (136-145)
[2023-12-31 15:54] LABS: Anion Gap 9 (5-15); Calcium 9.2 mg/dL (8.7-10.4); Carbon Dioxide 19 mmol/L (20-30)
[2023-12-31 15:57] LABS: Hemoglobin 6.2 g/dL (13.5-17.5)
[2023-12-31 15:59] LABS: BUN/Creatinine Ratio 32.2 (10.0-20.0); Blood Urea Nitrogen 68 mg/dL (9-23); Glucose 271 mg/dL (74-106)
[2023-12-31 16:23] LABS: Potassium 5.7 mmol/L (3.5-5.1)
[2023-12-31] MEDS: CALCIUM GLUC 1,000mg/50ml-NS 50 ML IV ONE ×2 (16:30→22:27)
[2023-12-31] MEDS: SODIUM BICARB 8.4% 50Meq/50ml SYR Vial IV ONE ×2 (16:30→22:41)
[2023-12-31 16:51] LABS: Urine Bacteria FEW /hpf (None Seen); Urine Blood 2+ /uL (Negative); Urine Clarity Turbid (Clear); Urine Color Yellow (Yellow); Urine Protein, UAD 1+ (Negative); Urine Specific Gravity 1.023 (1.001-1.035); Urine Urobilinogen Normal (Negative); Urine WBC 5 /hpf (0 - 3)
[2023-12-31] MEDS ORDERED: DOCUSATE SOD 100 MG CAP PO PRN (18:30)
[2023-12-31] MEDS ORDERED: DEXTROSE (50%) 50ML SYRG IV PRN (18:30)
[2023-12-31 19:13] LABS: Hematocrit 19.3 % (41.0-53.0)
[2023-12-31 19:25] LABS: INR 1.31 (0.9-1.15); Prothrombin Time 13.5 sec (9.3-11.8)
[2023-12-31 19:26] LABS: Hemoglobin 6.1 g/dL (13.5-17.5)
[2023-12-31 21:12] LABS: Magnesium 1.9 mg/dL (1.6-2.6)
[2023-12-31 21:14] LABS: Phosphorus 3.5 mg/dL (2.4-5.1)
[2023-12-31] MEDS: SODIUM ZIRCONIUM CYCL 10 GM PAK PO SCH (21:56)
[2023-12-31] MEDS: SODIUM BICARB 8.4% 50Meq/50ml SYR INJ IV ONE (21:56)
[2023-12-31] MEDS: DEXTROSE (50%) 50ML SYRG IV ONE (21:56)
[2023-12-31] MEDS: ONDANSETRON HCL 4 MG/2 ML VIAL IV PRN (21:57)
[2023-12-31] MEDS: FUROSEMIDE 20 MG/2 ML VIAL IV ONE (21:57)
[2023-12-31] MEDS: HYDROmorphone HCL 2 MG/ML VL/or syr IV PRN (21:58)
[2023-12-31] MEDS: SODIUM ZIRCONIUM CYCL 10 GM PAK PO ONE (21:58)
[2023-12-31] MEDS: InsuLIN REG 1unit/0.01ml Soln (100units/ml) IV ONE (21:59)
[2023-12-31] MEDS: AMIODARONE HCL 200 MG TAB PO SCH (22:00)
[2023-12-31] MEDS ORDERED: LORazepam 2MG/ML-1ML VIAL IV PRN (22:15)
[2023-12-31] MEDS: SODIUM BICARB 50mEq/50ml Vial 50 ML in SOD CHL 0.45% 1,000 ML IV SCH (22:27)
[2023-12-31 22:40] LABS: Triglycerides 90 mg/dL (< 150)
[2023-12-31 22:41] LABS: LDL Cholesterol 30 mg/dL (< 100)
[2023-12-31 22:42] LABS: Cholesterol 82 mg/dL (< 200); HDL Cholesterol 32 mg/dL (40-59)
[2024-01-01] VITALS (11 sets, daily range): BP systolic 106–135; BP diastolic 59–73; PULSE 57–88; RESP 15–20; TEMP 97–98.5; O2SAT 97–100
[2024-01-01] MEDS: ACCU-CHEK COMFORT CURVE STRIP VI SCH (00:39)
[2024-01-01] MEDS: InsuLIN REG 1unit/0.01ml Soln (100units/ml) SC SCH (00:46)
[2024-01-01 02:46] LABS: Chloride 106 mmol/L (98-107); Potassium 5.2 mmol/L (3.5-5.1); Sodium 134 mmol/L (136-145)
[2024-01-01 02:47] LABS: Anion Gap 5 (5-15); Carbon Dioxide 23 mmol/L (20-30)
[2024-01-01 02:52] LABS: BUN/Creatinine Ratio 31.1 (10.0-20.0); Blood Urea Nitrogen 64 mg/dL (9-23); Glucose 215 mg/dL (74-106)
[2024-01-01 05:43] LABS: Basophils # (auto) 0 10 ^3/uL (0-0.2); Basophils % (auto) 0.2 % (0.0-2.0); Eosinophils # (auto) 0 10 ^3/uL (0-0.8); Hematocrit 29.7 % (41.0-53.0); Hemoglobin 9.7 g/dL (13.5-17.5); Lymphocytes # (auto) 0.3 10 ^3/uL (0.4-5.4); Lymphocytes % (auto) 4.8 % (10.0-50.0); Mean Corpuscular Hemoglobin 32.1 pg (28.0-32.0); Mean Corpuscular Hgb Conc. 32.8 g/dL (32.0-36.0); Mean Corpuscular Volume 97.8 fL (80.0-100.0); Monocytes # (auto) 0.6 10 ^3/uL (0-1.3); Monocytes % (auto) 8.4 % (0.0-12.0); Neutrophils # (auto) 6.1 10 ^3/uL (1.6-8.6); Neutrophils % (auto) 86.6 % (37.0-80.0); Nucleated Red Blood Cells % 0.5 %; Red Blood Cells 3.04 10^6/uL (4.5-5.90); Red Cell Distribution Width 18.9 % (11.8-14.3); White Blood Cell 7.1 10^3/uL (4.4-10.8)
[2024-01-01 05:51] LABS: Alanine Aminotransferase 25 U/L (7-40); Albumin 3.3 g/dL (3.2-4.8); Alkaline Phosphatase 71 U/L (46-116); Anion Gap 8 (5-15); Aspartate Aminotransferase 75 U/L (13-40); BUN/Creatinine Ratio 31.3 (10.0-20.0); Blood Urea Nitrogen 65 mg/dL (9-23); Calcium 9.2 mg/dL (8.7-10.4); Carbon Dioxide 23 mmol/L (20-30); Chloride 104 mmol/L (98-107); Glucose 195 mg/dL (74-106); Sodium 135 mmol/L (136-145)
[2024-01-01 05:52] LABS: Bilirubin, Total 1.3 mg/dL (0.2-1.0); Total Protein 6.8 g/dL (5.7-8.2)
[2024-01-01] MEDS: PIPERACILLIN-TAZOB 3.375GM 100 ML IV SCH (05:59)
[2024-01-01] MEDS: FUROSEMIDE 40 MG/4 ML VIAL IV SCH (06:01)
[2024-01-01] MEDS: ASPirin-EC 81 mg tab PO SCH (10:42)
[2024-01-01] MEDS: ATORVASTATIN 20 MG TAB PO SCH (10:42)
[2024-01-01] MEDS: APIXABAN 5 MG TAB PO SCH (11:03)
[2024-01-01 12:19] LABS: Creatinine, Urine 27.96 mg/dL (30.0-125.0); Urine Protein/Creatinine Ratio 0.93
[2024-01-01] MEDS: MANNITOL FTV 25% 12.5 GM/50 ML 50 ML IV ONE (12:43)
[2024-01-01] MEDS: TAMSULOSIN HYDROCHLORIDE 0.4 MG CAP PO SCH (18:22)
[2024-01-01 18:57] LABS: Hematocrit 29.1 % (41.0-53.0); Hemoglobin 9.4 g/dL (13.5-17.5)
[2024-01-01 21:27] LABS: Body Fluid Polymorphonuclear 22 % (0-25); Body Fluid Red Blood Cells 165 CUMM (0-2000); Body Fluid White Blood Cells 140 CUMM (0-200)
[2024-01-02] VITALS (7 sets, daily range): BP systolic 99–119; BP diastolic 48–63; PULSE 61–131; RESP 16–20; TEMP 97.5–98.8; O2SAT 97–100
[2024-01-02 06:49] LABS: Basophils # (auto) 0 10 ^3/uL (0-0.2); Eosinophils # (auto) 0 10 ^3/uL (0-0.8); Hemoglobin 8.2 g/dL (13.5-17.5); Lymphocytes # (auto) 0.2 10 ^3/uL (0.4-5.4); Monocytes # (auto) 0.3 10 ^3/uL (0-1.3)
[2024-01-02 06:53] LABS: Basophils % (auto) 0.3 % (0.0-2.0); Eosinophils % (auto) 0.9 % (0.0-7.0); Hematocrit 25.3 % (41.0-53.0); Mean Corpuscular Hgb Conc. 32.5 g/dL (32.0-36.0); Mean Corpuscular Volume 98.4 fL (80.0-100.0); Monocytes % (auto) 7.3 % (0.0-12.0); Neutrophils # (auto) 3.8 10 ^3/uL (1.6-8.6); Neutrophils % (auto) 86.5 % (37.0-80.0); Nucleated Red Blood Cells % 0.4 %; Red Blood Cells 2.57 10^6/uL (4.5-5.90); Red Cell Distribution Width 18.9 % (11.8-14.3); White Blood Cell 4.4 10^3/uL (4.4-10.8)
[2024-01-03] VITALS (8 sets, daily range): BP systolic 98–138; BP diastolic 50–77; PULSE 59–87; RESP 14–20; TEMP 97–98; O2SAT 96–99
[2024-01-03 07:17] LABS: Basophils # (auto) 0 10 ^3/uL (0-0.2); Basophils % (auto) 0.2 % (0.0-2.0); Hemoglobin 7.6 g/dL (13.5-17.5); Lymphocytes # (auto) 0.2 10 ^3/uL (0.4-5.4); Monocytes # (auto) 0.2 10 ^3/uL (0-1.3); Red Blood Cells 2.36 10^6/uL (4.5-5.90)
[2024-01-03 07:22] LABS: Eosinophils # (auto) 0 10 ^3/uL (0-0.8); Eosinophils % (auto) 1.5 % (0.0-7.0); Hematocrit 23.4 % (41.0-53.0); Lymphocytes % (auto) 7.2 % (10.0-50.0); Mean Corpuscular Hemoglobin 32.1 pg (28.0-32.0); Mean Corpuscular Hgb Conc. 32.4 g/dL (32.0-36.0); Mean Corpuscular Volume 98.9 fL (80.0-100.0); Monocytes % (auto) 8.1 % (0.0-12.0); Neutrophils # (auto) 2.5 10 ^3/uL (1.6-8.6); Nucleated Red Blood Cells % 0.3 %; Red Cell Distribution Width 19.5 % (11.8-14.3)
[2024-01-04] VITALS (17 sets, daily range): BP systolic 108–130; BP diastolic 45–76; PULSE 56–90; RESP 16–20; TEMP 97.3–98.2; O2SAT 95–100
[2024-01-04 05:21] LABS: Basophils # (auto) 0 10 ^3/uL (0-0.2); Eosinophils # (auto) 0.1 10 ^3/uL (0-0.8); Hemoglobin 7.7 g/dL (13.5-17.5); Lymphocytes # (auto) 0.3 10 ^3/uL (0.4-5.4); Monocytes # (auto) 0.3 10 ^3/uL (0-1.3)
[2024-01-04 05:25] LABS: Basophils % (auto) 0.3 % (0.0-2.0); Hematocrit 23.3 % (41.0-53.0); Lymphocytes % (auto) 8.6 % (10.0-50.0); Mean Corpuscular Hemoglobin 32.3 pg (28.0-32.0); Mean Corpuscular Volume 97.8 fL (80.0-100.0); Neutrophils # (auto) 2.3 10 ^3/uL (1.6-8.6); Neutrophils % (auto) 80.1 % (37.0-80.0); Nucleated Red Blood Cells % 0.2 %; Red Blood Cells 2.38 10^6/uL (4.5-5.90); Red Cell Distribution Width 20.4 % (11.8-14.3); White Blood Cell 2.9 10^3/uL (4.4-10.8)
[2024-01-04] MEDS: LIDOCAINE VISCOUS 2% 15ML UD PO ONE (12:00)
[2024-01-04] MEDS: fentaNYL CITRATE 100 MCG/2 ML VL IV ONE (12:00)
[2024-01-04] MEDS: MIDAZOLAM HCL 5 MG/ML-1ML VIAL IV ONE (12:00)
[2024-01-04] MEDS: MIDAZOLAM HCL 2MG/2ML 2ml VIAL (1mg/ml) ONE (12:09)
[2024-01-04 13:54] LABS: Alanine Aminotransferase 20 U/L (7-40); Albumin 2.9 g/dL (3.2-4.8); Alkaline Phosphatase 71 U/L (46-116); Anion Gap 8 (5-15); Aspartate Aminotransferase 65 U/L (13-40); BUN/Creatinine Ratio 22.4 (10.0-20.0); Blood Urea Nitrogen 32 mg/dL (9-23); Carbon Dioxide 28 mmol/L (20-30); Chloride 106 mmol/L (98-107); Glucose 80 mg/dL (74-106); Potassium 3.6 mmol/L (3.5-5.1); Sodium 142 mmol/L (136-145); Total Protein 5.6 g/dL (5.7-8.2)
[2024-01-05] VITALS (8 sets, daily range): BP systolic 109–124; BP diastolic 52–71; PULSE 60–85; RESP 16–22; TEMP 97.4–98.6; O2SAT 95–100
[2024-01-05 06:13] LABS: Basophils # (auto) 0 10 ^3/uL (0-0.2); Eosinophils # (auto) 0.1 10 ^3/uL (0-0.8); Lymphocytes # (auto) 0.4 10 ^3/uL (0.4-5.4); Monocytes # (auto) 0.3 10 ^3/uL (0-1.3); Monocytes % (auto) 8.3 % (0.0-12.0); Neutrophils # (auto) 2.6 10 ^3/uL (1.6-8.6); White Blood Cell 3.4 10^3/uL (4.4-10.8)
[2024-01-05 06:18] LABS: Basophils % (auto) 0.4 % (0.0-2.0); Eosinophils % (auto) 3.8 % (0.0-7.0); Hematocrit 24.8 % (41.0-53.0); Hemoglobin 8.1 g/dL (13.5-17.5); Lymphocytes % (auto) 12.4 % (10.0-50.0); Mean Corpuscular Hemoglobin 32.4 pg (28.0-32.0); Mean Corpuscular Hgb Conc. 32.6 g/dL (32.0-36.0); Mean Corpuscular Volume 99.4 fL (80.0-100.0); Neutrophils % (auto) 75.1 % (37.0-80.0); Red Blood Cells 2.49 10^6/uL (4.5-5.90)
[2024-01-05 06:19] LABS: Red Cell Distribution Width 22.1 % (11.8-14.3)
[2024-01-05 06:47] LABS: Alanine Aminotransferase 29 U/L (7-40); Albumin 3.1 g/dL (3.2-4.8); Alkaline Phosphatase 110 U/L (46-116); Anion Gap 5 (5-15); Aspartate Aminotransferase 84 U/L (13-40); BUN/Creatinine Ratio 18.2 (10.0-20.0); Blood Urea Nitrogen 28 mg/dL (9-23); Calcium 8.5 mg/dL (8.7-10.4); Carbon Dioxide 29 mmol/L (20-30); Chloride 104 mmol/L (98-107); Glucose 142 mg/dL (74-106); Potassium 3.8 mmol/L (3.5-5.1); Sodium 138 mmol/L (136-145)
[2024-01-05 06:48] LABS: Bilirubin, Total 1.1 mg/dL (0.2-1.0); Total Protein 6.4 g/dL (5.7-8.2)
[2024-01-06] VITALS (8 sets, daily range): BP systolic 95–132; BP diastolic 51–68; PULSE 58–87; RESP 18–20; TEMP 97.4–98.2; O2SAT 93–100
[2024-01-06 07:05] LABS: Basophils # (auto) 0 10 ^3/uL (0-0.2); Hematocrit 23.7 % (41.0-53.0); Hemoglobin 7.7 g/dL (13.5-17.5); Lymphocytes # (auto) 0.4 10 ^3/uL (0.4-5.4); Monocytes # (auto) 0.3 10 ^3/uL (0-1.3); Neutrophils # (auto) 2.7 10 ^3/uL (1.6-8.6); Red Blood Cells 2.39 10^6/uL (4.5-5.90)
[2024-01-06 07:06] LABS: Basophils % (auto) 0.5 % (0.0-2.0); Eosinophils # (auto) 0.2 10 ^3/uL (0-0.8); Eosinophils % (auto) 4.4 % (0.0-7.0); Lymphocytes % (auto) 10.7 % (10.0-50.0); Mean Corpuscular Hemoglobin 32.3 pg (28.0-32.0); Mean Corpuscular Hgb Conc. 32.6 g/dL (32.0-36.0); Mean Corpuscular Volume 99.3 fL (80.0-100.0); Monocytes % (auto) 7.9 % (0.0-12.0); Neutrophils % (auto) 76.5 % (37.0-80.0); Nucleated Red Blood Cells % 0.1 %; White Blood Cell 3.5 10^3/uL (4.4-10.8)
[2024-01-06 07:18] LABS: Alanine Aminotransferase 24 U/L (7-40); Albumin 2.9 g/dL (3.2-4.8); Alkaline Phosphatase 85 U/L (46-116); Anion Gap 9 (5-15); Aspartate Aminotransferase 74 U/L (13-40); BUN/Creatinine Ratio 16.1 (10.0-20.0); Bilirubin, Total 1.1 mg/dL (0.2-1.0); Blood Urea Nitrogen 18 mg/dL (9-23); Calcium 7.8 mg/dL (8.5-10.1); Carbon Dioxide 25 mmol/L (20-30); Chloride 100 mmol/L (98-107); Glucose 138 mg/dL (74-106); Potassium 3.3 mmol/L (3.5-5.1); Red Cell Distribution Width 21.2 % (11.8-14.3); Sodium 134 mmol/L (136-145); Total Protein 5.6 g/dL (5.7-8.2)
[2024-01-06] MEDS: POTASSIUM CHL 20 Meq TABLET PO ONE (10:45)
[2024-01-07] VITALS (8 sets, daily range): BP systolic 102–121; BP diastolic 54–63; PULSE 54–82; RESP 18–20; TEMP 97.2–98.7; O2SAT 94–97
[2024-01-07 07:19] LABS: Basophils # (auto) 0 10 ^3/uL (0-0.2); Eosinophils # (auto) 0.1 10 ^3/uL (0-0.8); Lymphocytes # (auto) 0.4 10 ^3/uL (0.4-5.4); Mean Corpuscular Volume 97.3 fL (80.0-100.0); Monocytes # (auto) 0.3 10 ^3/uL (0-1.3)
[2024-01-07 07:22] LABS: Basophils % (auto) 0.5 % (0.0-2.0); Eosinophils % (auto) 3.4 % (0.0-7.0); Hemoglobin 7.8 g/dL (13.5-17.5); Lymphocytes % (auto) 9.9 % (10.0-50.0); Mean Corpuscular Hemoglobin 31.7 pg (28.0-32.0); Mean Corpuscular Hgb Conc. 32.6 g/dL (32.0-36.0); Monocytes % (auto) 8.6 % (0.0-12.0); Neutrophils # (auto) 2.9 10 ^3/uL (1.6-8.6); Neutrophils % (auto) 77.6 % (37.0-80.0); Nucleated Red Blood Cells % 0.2 %; Red Blood Cells 2.47 10^6/uL (4.5-5.90); White Blood Cell 3.7 10^3/uL (4.4-10.8)
[2024-01-07 07:25] LABS: INR 1.14 (0.9-1.15); Partial Thromboplastin Time 31.6 SEC (24.5-34.5); Prothrombin Time 11.9 sec (9.3-11.8)
[2024-01-07 07:28] LABS: Red Cell Distribution Width 20.8 % (11.8-14.3)
[2024-01-07 07:40] LABS: Alanine Aminotransferase 20 U/L (7-40); Albumin 2.9 g/dL (3.2-4.8); Alkaline Phosphatase 79 U/L (46-116); Anion Gap 9 (5-15); Aspartate Aminotransferase 64 U/L (13-40); BUN/Creatinine Ratio 16.4 (10.0-20.0); Bilirubin, Total 1.1 mg/dL (0.2-1.0); Blood Urea Nitrogen 22 mg/dL (9-23); Calcium 7.9 mg/dL (8.5-10.1); Carbon Dioxide 25 mmol/L (20-30); Chloride 102 mmol/L (98-107); Glucose 109 mg/dL (74-106); Sodium 136 mmol/L (136-145)
[2024-01-07 08:30] LABS: Anisocytosis Slight; Platelet Estimate Adequate
[2024-01-07 08:56] LABS: Hepatitis B Core Total AB Negative (Negative)
[2024-01-07 09:40] LABS: Hepatitis A Total Antibody Positive (Negative); Hepatitis B Surface Antibody Negative (Negative); Hepatitis B Surface Antigen Negative (Negative); Hepatitis C Antibody Negative (Negative)
[2024-01-07] MEDS: POTASSIUM CHL 20 Meq TABLET PO ONE (12:46)
[2024-01-07] MEDS: SODIUM CHLORIDE 0.9% 1,000 ML IV SCH (17:04)
[2024-01-08] VITALS (7 sets, daily range): BP systolic 108–129; BP diastolic 63–69; PULSE 70–83; RESP 16–18; TEMP 97.5–98.6; O2SAT 97–98
[2024-01-08 06:25] LABS: Alanine Aminotransferase 23 U/L (7-40); Alkaline Phosphatase 77 U/L (46-116); Anion Gap 6 (5-15); Aspartate Aminotransferase 60 U/L (13-40); BUN/Creatinine Ratio 16.3 (10.0-20.0); Blood Urea Nitrogen 20 mg/dL (9-23); Calcium 8.4 mg/dL (8.7-10.4); Carbon Dioxide 26 mmol/L (20-30); Chloride 103 mmol/L (98-107); Glucose 128 mg/dL (74-106); Potassium 3.5 mmol/L (3.5-5.1); Sodium 135 mmol/L (136-145)
[2024-01-08] MEDS: FUROSEMIDE 40 MG/4 ML VIAL IV SCH (10:00)
[2024-01-09] VITALS (16 sets, daily range): BP systolic 102–133; BP diastolic 63–74; PULSE 70–87; RESP 15–18; TEMP 97.3–98.3; O2SAT 93–98
[2024-01-09] MEDS ORDERED: SODIUM CHLORIDE 0.9% 1,000 ML IV SCH (00:01)
[2024-01-09 07:33] LABS: Alanine Aminotransferase 22 U/L (7-40); Albumin 3.2 g/dL (3.2-4.8); Alkaline Phosphatase 82 U/L (46-116); Anion Gap 5 (5-15); Aspartate Aminotransferase 73 U/L (13-40); Blood Urea Nitrogen 17 mg/dL (9-23); Calcium 8.6 mg/dL (8.5-10.1); Carbon Dioxide 27 mmol/L (20-30); Chloride 104 mmol/L (98-107); Glucose 123 mg/dL (74-106); Potassium 3.7 mmol/L (3.5-5.1); Sodium 136 mmol/L (136-145)
[2024-01-09 07:34] LABS: Bilirubin, Total 1.4 mg/dL (0.2-1.0); Total Protein 6.6 g/dL (5.7-8.2)
[2024-01-09] MEDS: VANCOMYCIN HCL 1000 MG VL ONE ×2 (07:52→07:59)
[2024-01-09] MEDS: fentaNYL CITRATE 100 MCG/2 ML VL ONE (07:53)
[2024-01-09] MEDS: VANCOMYCIN 1GM/200ML 200 ML IV ONE (07:53)
[2024-01-09] MEDS: MIDAZOLAM HCL 2MG/2ML 2ml VIAL (1mg/ml) ONE (07:53)
[2024-01-09] MEDS: LIDOCAINE 2%HCL (LOCAL ANESTH.) INJ 20ML MDV ONE (07:53)
[2024-01-09] MEDS: IOHEXOL 350 MG/ML 100ML IJ ONE (07:58)
[2024-01-09] MEDS: PHENYLEPHRINE IV 250 ML IV ONE (09:18)
[2024-01-09 12:25] LABS: Basophils # (auto) 0 10 ^3/uL (0-0.2); Eosinophils # (auto) 0 10 ^3/uL (0-0.8); Eosinophils % (auto) 1.5 % (0.0-7.0); Hemoglobin 8.2 g/dL (13.5-17.5); Lymphocytes # (auto) 0.3 10 ^3/uL (0.4-5.4); Monocytes # (auto) 0.2 10 ^3/uL (0-1.3); White Blood Cell 3.2 10^3/uL (4.4-10.8)
[2024-01-09 12:27] LABS: Basophils % (auto) 0.6 % (0.0-2.0); Hematocrit 25.3 % (41.0-53.0); Lymphocytes % (auto) 8.9 % (10.0-50.0); Mean Corpuscular Hemoglobin 32.1 pg (28.0-32.0); Mean Corpuscular Hgb Conc. 32.3 g/dL (32.0-36.0); Mean Corpuscular Volume 99.6 fL (80.0-100.0); Monocytes % (auto) 6.9 % (0.0-12.0); Neutrophils # (auto) 2.6 10 ^3/uL (1.6-8.6); Neutrophils % (auto) 82.1 % (37.0-80.0); Nucleated Red Blood Cells % 0.2 %; Red Blood Cells 2.54 10^6/uL (4.5-5.90); Red Cell Distribution Width 21.1 % (11.8-14.3)
[2024-01-09] MEDS: VANCOMYCIN 1GM/200ML 200 ML IV SCH (21:32)
[2024-01-09] MEDS: DOXYCYCLINE 100 MG TAB/CAP PO SCH (22:54)
[2024-01-10] VITALS (9 sets, daily range): BP systolic 108–129; BP diastolic 69–77; PULSE 55–95; RESP 15–19; TEMP 97.7–98.7; O2SAT 95–98
[2024-01-10] MEDS: HYDROcodone-ACET 5/325MG TAB PO PRN (04:25)
[2024-01-10] MEDS: ASPirin-EC 81 mg tab PO SCH (09:47)
[2024-01-10] MEDS: guaiFENesin-DM 100/10mg/5ml SYR PO PRN (10:54)
[2024-01-11 00:55] VITALS: BP 133/76; PULSE 61; RESP 18; TEMP 98.6; O2SAT 94
[2024-01-11 05:00] VITALS: BP 125/68; PULSE 81; RESP 17; TEMP 98; O2SAT 95
[2024-01-11 05:55] LABS: Basophils # (auto) 0 10 ^3/uL (0-0.2); Basophils % (auto) 1.2 % (0.0-2.0); Eosinophils # (auto) 0.1 10 ^3/uL (0-0.8); Eosinophils % (auto) 3.1 % (0.0-7.0); Hematocrit 28.3 % (41.0-53.0); Hemoglobin 9.4 g/dL (13.5-17.5); Lymphocytes # (auto) 0.3 10 ^3/uL (0.4-5.4); Lymphocytes % (auto) 9.1 % (10.0-50.0); Mean Corpuscular Hemoglobin 32.3 pg (28.0-32.0); Mean Corpuscular Hgb Conc. 33.2 g/dL (32.0-36.0); Mean Corpuscular Volume 97.2 fL (80.0-100.0); Monocytes # (auto) 0.3 10 ^3/uL (0-1.3); Monocytes % (auto) 9.1 % (0.0-12.0); Neutrophils # (auto) 2.9 10 ^3/uL (1.6-8.6); Neutrophils % (auto) 77.5 % (37.0-80.0); Nucleated Red Blood Cells % 0.2 %; Red Blood Cells 2.91 10^6/uL (4.5-5.90); Red Cell Distribution Width 19.5 % (11.8-14.3); White Blood Cell 3.7 10^3/uL (4.4-10.8)
[2024-01-11 06:09] LABS: Alanine Aminotransferase 14 U/L (7-40); Albumin 3.2 g/dL (3.2-4.8); Alkaline Phosphatase 73 U/L (46-116); Anion Gap 6 (5-15); Aspartate Aminotransferase 65 U/L (13-40); BUN/Creatinine Ratio 14.3 (10.0-20.0); Blood Urea Nitrogen 17 mg/dL (9-23); Calcium 8.2 mg/dL (8.5-10.1); Carbon Dioxide 23 mmol/L (20-30); Chloride 106 mmol/L (98-107); Glucose 176 mg/dL (74-106); Potassium 3.9 mmol/L (3.5-5.1); Sodium 135 mmol/L (136-145)
[2024-01-11 06:11] LABS: Bilirubin, Total 1.2 mg/dL (0.2-1.0); Total Protein 6.4 g/dL (5.7-8.2)
[2024-01-11 08:10] VITALS: O2SAT 97
[2024-01-11 09:00] VITALS: BP 118/69; PULSE 78; RESP 17; TEMP 97.7; O2SAT 98
[2024-01-11] MEDS ORDERED: DOXY-346 PO (14:26)
[2024-01-11] MEDS ORDERED: HYDR-4902 PO (14:26)
== END 2024-01-11 17:40 | disposition home or self-care (01) | DRG 276 ==
LOC: ER 14:02 → TELE-CENTR 18:43 → TELE 18:43 → TELE-CENTR 01-01 02:41 → TELE-WESTW 01-08 08:02
PROVIDERS: ADMIT Nurse Practitioner Family; ATTEND Family Medicine
PROC: 30233N1 Transfusion of Nonautologous Red Blood Cells into Peripheral Vein, Percutaneous Approach (ICD-10-PCS; principal; 2023-12-31)
PROC: 0W993ZZ Drainage of Right Pleural Cavity, Percutaneous Approach (ICD-10-PCS; 2024-01-01)
PROC: B24BZZ4 Ultrasonography of Heart with Aorta, Transesophageal (ICD-10-PCS; 2024-01-04)
PROC: 0JH609Z Insertion of Cardiac Resynchronization Defibrillator Pulse Generator into Chest Subcutaneous Tissue and Fascia, Open Approach (ICD-10-PCS; 2024-01-09)
PROC: 02HK3KZ Insertion of Defibrillator Lead into Right Ventricle, Percutaneous Approach (ICD-10-PCS; 2024-01-09)
PROC: 02HL3KZ Insertion of Defibrillator Lead into Left Ventricle, Percutaneous Approach (ICD-10-PCS; 2024-01-09)
PROC: B517YZZ Fluoroscopy of Left Subclavian Vein using Other Contrast (ICD-10-PCS; 2024-01-09)
DX: I13.0 Hypertensive heart and chronic kidney disease with heart failure and stage 1 through stage 4 chronic kidney disease, or unspecified chronic kidney disease (principal); I50.23 Acute on chronic systolic (congestive) heart failure; K29.01 Acute gastritis with bleeding; N17.0 Acute kidney failure with tubular necrosis; I48.19 Other persistent atrial fibrillation; N13.6 Pyonephrosis; D62 Acute posthemorrhagic anemia; E87.20 Acidosis, unspecified; E87.1 Hypo-osmolality and hyponatremia; J98.11 Atelectasis; J91.8 Pleural effusion in other conditions classified elsewhere; N20.2 Calculus of kidney with calculus of ureter; I24.89 Other forms of acute ischemic heart disease; Q21.10 Atrial septal defect, unspecified; I42.0 Dilated cardiomyopathy; E11.65 Type 2 diabetes mellitus with hyperglycemia; D53.9 Nutritional anemia, unspecified; E87.5 Hyperkalemia; E11.22 Type 2 diabetes mellitus with diabetic chronic kidney disease; R29.810 Facial weakness; K62.89 Other specified diseases of anus and rectum; I08.1 Rheumatic disorders of both mitral and tricuspid valves; N18.30 Chronic kidney disease, stage 3 unspecified; K74.60 Unspecified cirrhosis of liver; I25.10 Atherosclerotic heart disease of native coronary artery without angina pectoris; N28.9 Disorder of kidney and ureter, unspecified; I44.7 Left bundle-branch block, unspecified; F17.200 Nicotine dependence, unspecified, uncomplicated; I48.0 Paroxysmal atrial fibrillation; K44.9 Diaphragmatic hernia without obstruction or gangrene; I27.20 Pulmonary hypertension, unspecified; D69.6 Thrombocytopenia, unspecified; E78.5 Hyperlipidemia, unspecified; I25.5 Ischemic cardiomyopathy; Z79.84 Long term (current) use of oral hypoglycemic drugs; Z95.1 Presence of aortocoronary bypass graft; Z98.61 Coronary angioplasty status; I25.2 Old myocardial infarction; Z80.0 Family history of malignant neoplasm of digestive organs; Z82.49 Family history of ischemic heart disease and other diseases of the circulatory system
CPT/HCPCS: 32555; 33249; 36415; 70450; 70551; 71045; 74176; 76700; 76775; 76942; 80048; 80053; 80061; 81001; 82105; 82270; 82306; 82378; 82570; 82728; 82962; 83036; 83735; 83970; 83986; 84100; 84132; 84156; 84300; 84550; 85014; 85018; 85025; 85610; 85730; 86704; 86706; 86708; 86803; 86850; 86900; 86901; 86920; 87081; 87205; 87340; 89051; 93005; 93306; 93312; 93886; 96365; 96375; 97110; 97116; 97163; 97530; 99152; 99291; A4565; G0378; J1815; J2250; J2405; J2543

== ENCOUNTER 2024-01-20 23:46 | Inpatient (IN) | payer OTHER ==
[~2024-01-20] VITALS: Ht 165.1 cm; Wt 65.0 kg
[~2024-01-20 23:46] MED LIST changes: +DOXY-346 PO; +DOXY100C4 PO; +HYDR-4902 PO; -TAMS-35 PO
[2024-01-21 02:02] LABS: Alanine Aminotransferase 13 U/L (7-40); Albumin 3.4 g/dL (3.2-4.8); Alkaline Phosphatase 90 U/L (46-116); Anion Gap 13 (5-15); Aspartate Aminotransferase 56 U/L (13-40); BUN/Creatinine Ratio 30.3 (10.0-20.0); Bilirubin, Total 1.5 mg/dL (0.2-1.0); Calcium 9.8 mg/dL (8.5-10.1); Carbon Dioxide 21 mmol/L (20-30); Chloride 103 mmol/L (98-107); Glucose 204 mg/dL (74-106); Potassium 5.5 mmol/L (3.5-5.1); Sodium 137 mmol/L (136-145); Total Protein 8.1 g/dL (5.7-8.2)
[2024-01-21 02:08] LABS: INR 1.48 (0.9-1.15); Prothrombin Time 15.2 sec (9.3-11.8)
[2024-01-21 02:19] LABS: Blood Urea Nitrogen 83 mg/dL (9-23)
[2024-01-21 02:23] LABS: Basophils # (auto) 0 10 ^3/uL (0-0.2); Basophils % (auto) 0.2 % (0.0-2.0); Eosinophils # (auto) 0 10 ^3/uL (0-0.8); Eosinophils % (auto) 0.3 % (0.0-7.0); Hematocrit 26.2 % (41.0-53.0); Hemoglobin 8.2 g/dL (13.5-17.5); Lymphocytes # (auto) 0.5 10 ^3/uL (0.4-5.4); Mean Corpuscular Hemoglobin 31.3 pg (28.0-32.0); Mean Corpuscular Hgb Conc. 31.2 g/dL (32.0-36.0); Mean Corpuscular Volume 100.2 fL (80.0-100.0); Monocytes # (auto) 0.4 10 ^3/uL (0-1.3); Monocytes % (auto) 3.1 % (0.0-12.0); Neutrophils # (auto) 12.1 10 ^3/uL (1.6-8.6); Neutrophils % (auto) 92.4 % (37.0-80.0); Nucleated Red Blood Cells % 0.1 %; Red Blood Cells 2.61 10^6/uL (4.5-5.90); Red Cell Distribution Width 20.2 % (11.8-14.3); White Blood Cell 13.1 10^3/uL (4.4-10.8)
[2024-01-21] MEDS: SODIUM CHLORIDE 0.9% 1,000 ML IV ONE (04:03)
[2024-01-21] MEDS: ONDANSETRON HCL 4 MG/2 ML VIAL IV ONE (04:04)
[2024-01-21] MEDS: MORPHINE SULFATE 4 MG/ML SYR/VIAL IM ONE (05:00)
[2024-01-21] MEDS: SODIUM CHLORIDE 0.9% 1,000 ML IV SCH (07:30)
[2024-01-21] MEDS ORDERED: MORPHINE SULFATE INJ 2 MG/ml SYRG IV PRN (07:30)
[2024-01-21] MEDS ORDERED: NITROGLYCERIN 0.4 MG SL TAB SL PRN (07:30)
[2024-01-21 08:30] VITALS: PULSE 86; RESP 15; O2SAT 99
[2024-01-21] MEDS: DEXTROSE (50%) 50ML SYRG IV ONE ×2 (09:00→18:18)
[2024-01-21] MEDS: PANTOPRAZOLE 40 MG/10 ML VIAL INJ IV SCH (10:10)
[2024-01-21] MEDS: MORPHINE SULFATE INJ 2 MG/ml SYRG IV PRN (10:11)
[2024-01-21] MEDS: ACCU-CHEK COMFORT CURVE STRIP VI ONE (11:30)
[2024-01-21] MEDS: InsuLIN REG 1unit/0.01ml Soln (100units/ml) SC ONE (12:12)
[2024-01-21 13:12] LABS: Hepatitis B Surface Antigen Negative (Negative)
[2024-01-21 13:34] LABS: Hepatitis A Ab IgM Negative
[2024-01-21 13:35] LABS: Hepatitis B Core IgM Negative; Hepatitis C Antibody Negative (Negative)
[2024-01-21 14:03] LABS: Magnesium 1.9 mg/dL (1.6-2.6)
[2024-01-21 14:04] LABS: Phosphorus 4.2 mg/dL (2.4-5.1)
[2024-01-21] MEDS: AMIODARONE 450mg/250ml AE 250 ML IV SCH (18:18)
[2024-01-21] MEDS: InsuLIN REG 1unit/0.01ml Soln (100units/ml) IV ONE (18:19)
[2024-01-21 19:10] LABS: Urine Bacteria None Seen /hpf (None Seen)
[2024-01-21 19:30] VITALS: PULSE 91; RESP 22; O2SAT 100
[2024-01-21 19:32] LABS: Urine Blood 2+ /uL (Negative); Urine Clarity Clear (Clear); Urine Color Light-Yellow (Yellow); Urine Protein, UAD Negative (Negative); Urine Specific Gravity 1.012 (1.001-1.035); Urine Urobilinogen Normal (Negative); Urine WBC 5 /hpf (0 - 3); Urine pH 5.5 (5.0-9.0)
[2024-01-21 19:45] LABS: Protein, Urine 33.2 mg/dL (0.0-11.9)
[2024-01-21 19:48] LABS: Creatinine, Urine 31.39 mg/dL (30.0-125.0); Urine Protein/Creatinine Ratio 1.06
[2024-01-21 23:33] VITALS: BP 101/61; PULSE 98; RESP 16; TEMP 98.1; O2SAT 99
[2024-01-22] VITALS (11 sets, daily range): BP systolic 100–111; BP diastolic 55–70; PULSE 71–120; RESP 16–19; TEMP 97.6–98.5; O2SAT 93–100
[2024-01-22 07:24] LABS: Hematocrit 20.3 % (41.0-53.0); Mean Corpuscular Hemoglobin 31.4 pg (28.0-32.0); Mean Corpuscular Hgb Conc. 30.9 g/dL (32.0-36.0); Mean Corpuscular Volume 101.6 fL (80.0-100.0); White Blood Cell 11.5 10^3/uL (4.4-10.8)
[2024-01-22 07:31] LABS: Hemoglobin 6.3 g/dL (13.5-17.5)
[2024-01-22 07:32] LABS: Alanine Aminotransferase 12 U/L (7-40); Albumin 2.6 g/dL (3.2-4.8); Alkaline Phosphatase 76 U/L (46-116); Anion Gap 11 (5-15); BUN/Creatinine Ratio 33.1 (10.0-20.0); Basophils % (manual) 0 (0.0-2.0); Blast Cells 0; Calcium 8.8 mg/dL (8.5-10.1); Carbon Dioxide 24 mmol/L (20-30); Chloride 112 mmol/L (98-107); Eosinophils % (manual) 0 (0-7); Glucose 225 mg/dL (74-106); Metamyelocytes % 0; Myelocytes % 0; Potassium 4.2 mmol/L (3.5-5.1); Promyelocytes % 0; Reactive Lymphocytes 0; Total Protein 6.5 g/dL (5.7-8.2)
[2024-01-22 07:35] LABS: Aspartate Aminotransferase 30 U/L (13-40)
[2024-01-22 07:37] LABS: Sodium 147 mmol/L (136-145)
[2024-01-22 07:39] LABS: Blood Urea Nitrogen 81 mg/dL (9-23)
[2024-01-22 09:43] LABS: Band Neutrophils % (manual) 5; Lymphocytes % (manual) 5 (10.0-50.0); Monocytes % (manual) 3 (0-12); Platelet Estimate Decreased
[2024-01-22 09:44] LABS: Anisocytosis Slight; Macrocytosis Slight
[2024-01-22 15:46] LABS: Hemoglobin 7.7 g/dL (13.5-17.5); Mean Corpuscular Volume 97.4 fL (80.0-100.0)
[2024-01-22 15:48] LABS: Hematocrit 24.5 % (41.0-53.0); Mean Corpuscular Hemoglobin 30.7 pg (28.0-32.0); Mean Corpuscular Hgb Conc. 31.6 g/dL (32.0-36.0); Red Blood Cells 2.52 10^6/uL (4.5-5.90); Red Cell Distribution Width 19.4 % (11.8-14.3); White Blood Cell 12.8 10^3/uL (4.4-10.8)
[2024-01-22 15:54] LABS: Basophils % (manual) 0 (0.0-2.0); Blast Cells 0; Eosinophils % (manual) 0 (0-7); Metamyelocytes % 0; Myelocytes % 0; Promyelocytes % 0; Reactive Lymphocytes 0
[2024-01-22] MEDS: SOD CHL 0.45% 1,000 ML IV SCH (16:30)
[2024-01-22 16:44] LABS: Anisocytosis Slight; Band Neutrophils % (manual) 8; Lymphocytes % (manual) 1 (10.0-50.0); Monocytes % (manual) 4 (0-12); Platelet Estimate Decreased
[2024-01-23] VITALS (8 sets, daily range): BP systolic 99–121; BP diastolic 46–73; PULSE 81–123; RESP 16–18; TEMP 97.5–98.1; O2SAT 92–99
[2024-01-23] MEDS: MORPHINE SULFATE INJ 2 MG/ml SYRG IV PRN (01:08)
[2024-01-23 09:33] LABS: Alanine Aminotransferase 11 U/L (7-40); Albumin 2.8 g/dL (3.2-4.8); Alkaline Phosphatase 81 U/L (46-116); Anion Gap 10 (5-15); Aspartate Aminotransferase 36 U/L (13-40); BUN/Creatinine Ratio 26.3 (10.0-20.0); Bilirubin, Total 1.3 mg/dL (0.2-1.0); Calcium 8.9 mg/dL (8.5-10.1); Carbon Dioxide 24 mmol/L (20-30); Chloride 115 mmol/L (98-107); Glucose 253 mg/dL (74-106); Potassium 4.2 mmol/L (3.5-5.1); Sodium 149 mmol/L (136-145); Total Protein 7.2 g/dL (5.7-8.2)
[2024-01-23 09:39] LABS: Blood Urea Nitrogen 60 mg/dL (9-23)
[2024-01-23] MEDS: AMIODARONE HCL 200 MG TAB PO SCH (10:08)
[2024-01-23 13:06] LABS: Basophils # (auto) 0 10 ^3/uL (0-0.2); Eosinophils # (auto) 0 10 ^3/uL (0-0.8); Eosinophils % (auto) 0.1 % (0.0-7.0); Hematocrit 24.1 % (41.0-53.0); Hemoglobin 7.6 g/dL (13.5-17.5); Lymphocytes # (auto) 0.2 10 ^3/uL (0.4-5.4); Lymphocytes % (auto) 2.2 % (10.0-50.0); Mean Corpuscular Hemoglobin 31.2 pg (28.0-32.0); Mean Corpuscular Hgb Conc. 31.5 g/dL (32.0-36.0); Mean Corpuscular Volume 99.2 fL (80.0-100.0); Monocytes # (auto) 0.3 10 ^3/uL (0-1.3); Monocytes % (auto) 3.4 % (0.0-12.0); Neutrophils # (auto) 8.2 10 ^3/uL (1.6-8.6); Neutrophils % (auto) 94.3 % (37.0-80.0); Red Blood Cells 2.43 10^6/uL (4.5-5.90); Red Cell Distribution Width 19.6 % (11.8-14.3); White Blood Cell 8.7 10^3/uL (4.4-10.8)
[2024-01-23] MEDS: cefTRIAXone 1GM/50ML D5W 50 ML IV SCH (14:44)
[2024-01-23] MEDS: AZITHROMYCIN 250 MG TAB PO SCH (14:44)
[2024-01-24] VITALS (7 sets, daily range): BP systolic 103–124; BP diastolic 63–74; PULSE 67–130; RESP 16–18; TEMP 97.3–98.6; O2SAT 95–100
[2024-01-24 07:05] LABS: Basophils # (auto) 0 10 ^3/uL (0-0.2); Eosinophils # (auto) 0 10 ^3/uL (0-0.8); Eosinophils % (auto) 0.1 % (0.0-7.0); Lymphocytes # (auto) 0.2 10 ^3/uL (0.4-5.4); Lymphocytes % (auto) 2.3 % (10.0-50.0); Neutrophils # (auto) 9.8 10 ^3/uL (1.6-8.6)
[2024-01-24 07:08] LABS: Basophils % (auto) 0.4 % (0.0-2.0); Hematocrit 24.9 % (41.0-53.0); Hemoglobin 7.9 g/dL (13.5-17.5); Mean Corpuscular Hemoglobin 31.4 pg (28.0-32.0); Mean Corpuscular Hgb Conc. 31.8 g/dL (32.0-36.0); Mean Corpuscular Volume 98.7 fL (80.0-100.0); Monocytes # (auto) 0.4 10 ^3/uL (0-1.3); Monocytes % (auto) 3.5 % (0.0-12.0); Neutrophils % (auto) 93.7 % (37.0-80.0); Nucleated Red Blood Cells % 0.1 %; Red Blood Cells 2.52 10^6/uL (4.5-5.90); White Blood Cell 10.5 10^3/uL (4.4-10.8)
[2024-01-24 07:34] LABS: Anion Gap 11 (5-15); Carbon Dioxide 23 mmol/L (20-30); Chloride 117 mmol/L (98-107); Potassium 3.8 mmol/L (3.5-5.1); Sodium 151 mmol/L (136-145)
[2024-01-24 07:40] LABS: BUN/Creatinine Ratio 24.7 (10.0-20.0); Blood Urea Nitrogen 57 mg/dL (9-23); Glucose 220 mg/dL (74-106)
[2024-01-24] MEDS ORDERED: D5W 5% 1,000 ML IV SCH (09:45)
[2024-01-24] MEDS ORDERED: DEXTROSE (50%) 50ML SYRG IV PRN (09:45)
[2024-01-24] MEDS: ACCU-CHEK COMFORT CURVE STRIP VI SCH (10:33)
[2024-01-24] MEDS: InsuLIN REG 1unit/0.01ml Soln (100units/ml) SC SCH ×2 (10:37→22:00)
[2024-01-24] MEDS: ONDANSETRON HCL 4 MG/2 ML VIAL IV PRN (23:09)
[2024-01-25] VITALS (8 sets, daily range): BP systolic 101–127; BP diastolic 55–67; PULSE 57–112; RESP 14–18; TEMP 97.3–98.2; O2SAT 97–100
[2024-01-25 06:22] LABS: Calcium 9.1 mg/dL (8.5-10.1); Chloride 118 mmol/L (98-107); Potassium 4.2 mmol/L (3.5-5.1); Sodium 152 mmol/L (136-145)
[2024-01-25 06:23] LABS: Anion Gap 9 (5-15); Carbon Dioxide 25 mmol/L (20-30)
[2024-01-25 06:28] LABS: BUN/Creatinine Ratio 24.3 (10.0-20.0); Blood Urea Nitrogen 54 mg/dL (9-23); Glucose 211 mg/dL (74-106)
[2024-01-25] MEDS: APIXABAN 2.5 MG TAB PO SCH (09:23)
[2024-01-25 15:00] LABS: Eosinophils # (auto) 0 10 ^3/uL (0-0.8); Hemoglobin 7.3 g/dL (13.5-17.5); Lymphocytes # (auto) 0.3 10 ^3/uL (0.4-5.4); Monocytes # (auto) 0.3 10 ^3/uL (0-1.3)
[2024-01-25 15:02] LABS: Basophils # (auto) 0.1 10 ^3/uL (0-0.2); Basophils % (auto) 1.2 % (0.0-2.0); Eosinophils % (auto) 0.2 % (0.0-7.0); Hematocrit 23.6 % (41.0-53.0); Lymphocytes % (auto) 2.9 % (10.0-50.0); Mean Corpuscular Hemoglobin 31.6 pg (28.0-32.0); Mean Corpuscular Volume 101.9 fL (80.0-100.0); Monocytes % (auto) 2.7 % (0.0-12.0); Neutrophils # (auto) 9.2 10 ^3/uL (1.6-8.6); Nucleated Red Blood Cells % 0.3 %; Red Blood Cells 2.31 10^6/uL (4.5-5.90); White Blood Cell 9.8 10^3/uL (4.4-10.8)
[2024-01-25 15:06] LABS: Red Cell Distribution Width 20.9 % (11.8-14.3)
[2024-01-25 15:12] LABS: Chloride 117 mmol/L (98-107); Potassium 3.8 mmol/L (3.5-5.1); Sodium 148 mmol/L (136-145)
[2024-01-25 15:13] LABS: Anion Gap 9 (5-15); Calcium 8.3 mg/dL (8.7-10.4); Carbon Dioxide 22 mmol/L (20-30)
[2024-01-25 15:18] LABS: Blood Urea Nitrogen 50 mg/dL (9-23)
[2024-01-25 15:19] LABS: Glucose 354 mg/dL (74-106)
[2024-01-26] VITALS (9 sets, daily range): BP systolic 96–121; BP diastolic 51–76; PULSE 61–111; RESP 18–24; TEMP 97.2–97.9; O2SAT 91–100
[2024-01-26 06:02] LABS: Chloride 118 mmol/L (98-107); Potassium 4.1 mmol/L (3.5-5.1); Sodium 151 mmol/L (136-145)
[2024-01-26 06:03] LABS: Anion Gap 7 (5-15); Calcium 8.9 mg/dL (8.5-10.1); Carbon Dioxide 26 mmol/L (20-30); Eosinophils # (auto) 0.1 10 ^3/uL (0-0.8); Hemoglobin 7.6 g/dL (13.5-17.5); Lymphocytes # (auto) 0.4 10 ^3/uL (0.4-5.4); Lymphocytes % (auto) 3.2 % (10.0-50.0); Monocytes # (auto) 0.3 10 ^3/uL (0-1.3)
[2024-01-26 06:09] LABS: Basophils # (auto) 0 10 ^3/uL (0-0.2); Basophils % (auto) 0.1 % (0.0-2.0); Hematocrit 24.3 % (41.0-53.0); Mean Corpuscular Hemoglobin 31.4 pg (28.0-32.0); Mean Corpuscular Hgb Conc. 31.3 g/dL (32.0-36.0); Mean Corpuscular Volume 100.2 fL (80.0-100.0); Monocytes % (auto) 2.7 % (0.0-12.0); Neutrophils # (auto) 10.9 10 ^3/uL (1.6-8.6); Nucleated Red Blood Cells % 0.3 %; Red Blood Cells 2.42 10^6/uL (4.5-5.90); White Blood Cell 11.7 10^3/uL (4.4-10.8)
[2024-01-26 06:17] LABS: Red Cell Distribution Width 20.2 % (11.8-14.3)
[2024-01-26 06:24] LABS: Glucose 174 mg/dL (74-106)
[2024-01-26 07:49] LABS: BUN/Creatinine Ratio 22.9 (10.0-20.0); Blood Urea Nitrogen 46 mg/dL (9-23)
[2024-01-26] MEDS: D5W 5% 1,000 ML IV SCH (12:56)
[2024-01-26 19:35] LABS: Body Fluid Polymorphonuclear 32 % (0-25); Body Fluid Red Blood Cells 1788 CUMM (0-2000); Body Fluid White Blood Cells 110 CUMM (0-200)
[2024-01-27] VITALS (8 sets, daily range): BP systolic 93–111; BP diastolic 45–71; PULSE 74–108; RESP 17–24; TEMP 97.4–98.6; O2SAT 95–100
[2024-01-27 07:23] LABS: Anion Gap 7 (5-15); Basophils # (auto) 0 10 ^3/uL (0-0.2); Carbon Dioxide 26 mmol/L (20-30); Chloride 115 mmol/L (98-107); Eosinophils # (auto) 0.1 10 ^3/uL (0-0.8); Lymphocytes # (auto) 0.3 10 ^3/uL (0.4-5.4); Lymphocytes % (auto) 3.2 % (10.0-50.0); Nucleated Red Blood Cells % 0.1 %; Potassium 4.1 mmol/L (3.5-5.1); Sodium 148 mmol/L (136-145); White Blood Cell 9.8 10^3/uL (4.4-10.8)
[2024-01-27 07:24] LABS: Calcium 8.5 mg/dL (8.5-10.1)
[2024-01-27 07:27] LABS: Basophils % (auto) 0.4 % (0.0-2.0); Eosinophils % (auto) 0.8 % (0.0-7.0); Hematocrit 23.4 % (41.0-53.0); Hemoglobin 7.3 g/dL (13.5-17.5); Mean Corpuscular Hgb Conc. 31.3 g/dL (32.0-36.0); Mean Corpuscular Volume 102.3 fL (80.0-100.0); Monocytes # (auto) 0.3 10 ^3/uL (0-1.3); Monocytes % (auto) 2.6 % (0.0-12.0); Neutrophils # (auto) 9.1 10 ^3/uL (1.6-8.6); Red Blood Cells 2.29 10^6/uL (4.5-5.90)
[2024-01-27 07:28] LABS: Red Cell Distribution Width 20.8 % (11.8-14.3)
[2024-01-27 07:29] LABS: BUN/Creatinine Ratio 22.1 (10.0-20.0); Blood Urea Nitrogen 38 mg/dL (9-23); Glucose 170 mg/dL (74-106)
[2024-01-27] MEDS: FUROSEMIDE 20 MG/2 ML VIAL IV ONE (11:49)
[2024-01-27] MEDS: PIPERACILLIN-TAZOB 3.375GM 100 ML IV SCH (13:49)
[2024-01-28] VITALS (8 sets, daily range): BP systolic 89–105; BP diastolic 44–59; PULSE 70–90; RESP 16–20; TEMP 97.6–98.3; O2SAT 97–100
[2024-01-28] MEDS ORDERED: DEXTROSE (50%) 50ML SYRG IV PRN (05:15)
[2024-01-28 06:15] LABS: Basophils # (auto) 0 10 ^3/uL (0-0.2); Basophils % (auto) 0.3 % (0.0-2.0); Eosinophils # (auto) 0.1 10 ^3/uL (0-0.8); Eosinophils % (auto) 1.6 % (0.0-7.0); Hematocrit 21.7 % (41.0-53.0); Hemoglobin 7.1 g/dL (13.5-17.5); Lymphocytes # (auto) 0.3 10 ^3/uL (0.4-5.4); Lymphocytes % (auto) 3.9 % (10.0-50.0); Mean Corpuscular Hemoglobin 32.7 pg (28.0-32.0); Mean Corpuscular Hgb Conc. 32.6 g/dL (32.0-36.0); Mean Corpuscular Volume 100.3 fL (80.0-100.0); Monocytes # (auto) 0.2 10 ^3/uL (0-1.3); Monocytes % (auto) 2.6 % (0.0-12.0); Neutrophils # (auto) 7.8 10 ^3/uL (1.6-8.6); Neutrophils % (auto) 91.6 % (37.0-80.0); Nucleated Red Blood Cells % 0.2 %; Red Blood Cells 2.16 10^6/uL (4.5-5.90); Red Cell Distribution Width 19.8 % (11.8-14.3); White Blood Cell 8.5 10^3/uL (4.4-10.8)
[2024-01-28 06:24] LABS: Calcium 7.9 mg/dL (8.7-10.4); Chloride 115 mmol/L (98-107); Potassium 3.5 mmol/L (3.5-5.1); Sodium 148 mmol/L (136-145)
[2024-01-28 06:25] LABS: Anion Gap 6 (5-15); Carbon Dioxide 27 mmol/L (20-30)
[2024-01-28 06:30] LABS: BUN/Creatinine Ratio 25.2 (10.0-20.0); Blood Urea Nitrogen 38 mg/dL (9-23); Glucose 174 mg/dL (74-106)
[2024-01-28] MEDS: ACCU-CHEK COMFORT CURVE STRIP VI SCH (08:00)
[2024-01-28] MEDS: InsuLIN REG 1unit/0.01ml Soln (100units/ml) SC SCH (08:00)
[2024-01-28] MEDS: FUROSEMIDE 20 MG/2 ML VIAL IV SCH (08:57)
[2024-01-29] VITALS (7 sets, daily range): BP systolic 91–111; BP diastolic 53–58; PULSE 62–95; RESP 16–18; TEMP 97.5–98.6; O2SAT 97–100
[2024-01-29 06:55] LABS: Chloride 112 mmol/L (98-107); Potassium 3.7 mmol/L (3.5-5.1); Sodium 145 mmol/L (136-145)
[2024-01-29 06:56] LABS: Anion Gap 5 (5-15); Carbon Dioxide 28 mmol/L (20-30)
[2024-01-29 06:57] LABS: Calcium 7.9 mg/dL (8.7-10.4)
[2024-01-29 07:01] LABS: BUN/Creatinine Ratio 20.4 (10.0-20.0); Blood Urea Nitrogen 31 mg/dL (9-23); Glucose 209 mg/dL (74-106)
[2024-01-29 14:30] LABS: Basophils # (auto) 0 10 ^3/uL (0-0.2); Eosinophils # (auto) 0.1 10 ^3/uL (0-0.8); Lymphocytes # (auto) 0.3 10 ^3/uL (0.4-5.4); Monocytes # (auto) 0.2 10 ^3/uL (0-1.3)
[2024-01-29 14:33] LABS: Basophils % (auto) 0.4 % (0.0-2.0); Eosinophils % (auto) 1.3 % (0.0-7.0); Hematocrit 22.2 % (41.0-53.0); Lymphocytes % (auto) 3.4 % (10.0-50.0); Mean Corpuscular Hemoglobin 31.4 pg (28.0-32.0); Mean Corpuscular Hgb Conc. 30.7 g/dL (32.0-36.0); Mean Corpuscular Volume 102.3 fL (80.0-100.0); Monocytes % (auto) 2.5 % (0.0-12.0); Neutrophils # (auto) 7.4 10 ^3/uL (1.6-8.6); Neutrophils % (auto) 92.4 % (37.0-80.0); Nucleated Red Blood Cells % 0.1 %; Red Blood Cells 2.17 10^6/uL (4.5-5.90)
[2024-01-29 14:58] LABS: Red Cell Distribution Width 20.6 % (11.8-14.3)
[2024-01-29 15:01] LABS: Hemoglobin 6.8 g/dL (13.5-17.5)
[2024-01-29] MEDS: PSYLLIUM PWD 5.8GM PKG GT SCH (18:08)
[2024-01-29 22:09] LABS: Body Fluid Red Blood Cells 2473 CUMM (0-2000); Body Fluid White Blood Cells 200 CUMM (0-200)
[2024-01-29 22:16] LABS: Body Fluid Polymorphonuclear 73 % (0-25)
[2024-01-29] MEDS: SENNA 8.6 MG TAB PO SCH (22:34)
[2024-01-30] VITALS (13 sets, daily range): BP systolic 86–114; BP diastolic 51–63; PULSE 70–102; RESP 16–19; TEMP 97.3–98.7; O2SAT 95–100
[2024-01-30 06:23] LABS: Eosinophils # (auto) 0.1 10 ^3/uL (0-0.8); Mean Corpuscular Hemoglobin 31.7 pg (28.0-32.0); Monocytes # (auto) 0.2 10 ^3/uL (0-1.3); Monocytes % (auto) 2.8 % (0.0-12.0); Nucleated Red Blood Cells % 0.1 %
[2024-01-30 06:25] LABS: Basophils # (auto) 0 10 ^3/uL (0-0.2); Basophils % (auto) 0.5 % (0.0-2.0); Eosinophils % (auto) 0.8 % (0.0-7.0); Lymphocytes # (auto) 0.3 10 ^3/uL (0.4-5.4); Lymphocytes % (auto) 2.9 % (10.0-50.0); Mean Corpuscular Hgb Conc. 32.1 g/dL (32.0-36.0); Mean Corpuscular Volume 98.7 fL (80.0-100.0); Neutrophils # (auto) 8.1 10 ^3/uL (1.6-8.6); Red Blood Cells 2.03 10^6/uL (4.5-5.90); White Blood Cell 8.7 10^3/uL (4.4-10.8)
[2024-01-30 06:27] LABS: Red Cell Distribution Width 20.1 % (11.8-14.3)
[2024-01-30 06:29] LABS: Anion Gap 4 (5-15); Carbon Dioxide 29 mmol/L (20-30); Chloride 112 mmol/L (98-107); Potassium 3.6 mmol/L (3.5-5.1); Sodium 145 mmol/L (136-145)
[2024-01-30 06:30] LABS: Calcium 8.1 mg/dL (8.5-10.1)
[2024-01-30 06:32] LABS: Hemoglobin 6.4 g/dL (13.5-17.5)
[2024-01-30 06:35] LABS: Blood Urea Nitrogen 30 mg/dL (9-23); Glucose 88 mg/dL (74-106)
[2024-01-30 10:06] LABS: Protein, Body Fluid 1.8 g/dL (.)
[2024-01-30] MEDS: IRON SUCROSE COMPLEX 100 ML IV SCH (14:06)
[2024-01-31] VITALS (10 sets, daily range): BP systolic 107–132; BP diastolic 57–95; PULSE 81–95; RESP 16–19; TEMP 97.7–98.4; O2SAT 95–100
[2024-01-31 12:17] LABS: Hematocrit 29.6 % (41.0-53.0); Hemoglobin 9.4 g/dL (13.5-17.5); Mean Corpuscular Hemoglobin 30.2 pg (28.0-32.0); Mean Corpuscular Hgb Conc. 31.7 g/dL (32.0-36.0); Mean Corpuscular Volume 95.3 fL (80.0-100.0); White Blood Cell 7.9 10^3/uL (4.4-10.8)
[2024-01-31 12:22] LABS: Red Cell Distribution Width 20.3 % (11.8-14.3)
[2024-01-31 12:25] LABS: Basophils % (manual) 0 (0.0-2.0); Blast Cells 0; Eosinophils % (manual) 0 (0-7); Metamyelocytes % 0; Myelocytes % 0; Promyelocytes % 0; Reactive Lymphocytes 0
[2024-01-31 12:39] LABS: Anisocytosis Slight; Band Neutrophils % (manual) 2; Hypochromia Slight; Lymphocytes % (manual) 4 (10.0-50.0); Monocytes % (manual) 3 (0-12); Platelet Estimate Decreased
[2024-01-31 14:59] LABS: Chloride 112 mmol/L (98-107); Potassium 3.6 mmol/L (3.5-5.1); Sodium 143 mmol/L (136-145)
[2024-01-31 15:00] LABS: Anion Gap 5 (5-15); Carbon Dioxide 26 mmol/L (20-30)
[2024-01-31 15:01] LABS: Calcium 7.7 mg/dL (8.7-10.4)
[2024-01-31 15:06] LABS: BUN/Creatinine Ratio 14.4 (10.0-20.0); Blood Urea Nitrogen 22 mg/dL (9-23)
[2024-01-31 15:06] LABS: Protein, Body Fluid 2.4 g/dL (.)
[2024-01-31 15:12] LABS: Glucose 318 mg/dL (74-106)
[2024-01-31] MEDS: GOLYTELY 4L KIT PO ONE (15:16)
[2024-02-01] VITALS (9 sets, daily range): BP systolic 110–138; BP diastolic 54–100; PULSE 77–121; RESP 16–20; TEMP 97.3–100; O2SAT 98–100
[2024-02-01] MEDS: GOLYTELY 4L KIT PO ONE (06:00)
[2024-02-01 06:15] LABS: Anion Gap 10 (5-15); Carbon Dioxide 25 mmol/L (20-30); Chloride 113 mmol/L (98-107); Potassium 3.2 mmol/L (3.5-5.1)
[2024-02-01 06:16] LABS: Calcium 7.9 mg/dL (8.7-10.4)
[2024-02-01 06:21] LABS: BUN/Creatinine Ratio 13.4 (10.0-20.0); Blood Urea Nitrogen 19 mg/dL (9-23)
[2024-02-01 06:27] LABS: Glucose 144 mg/dL (74-106); Sodium 148 mmol/L (136-145)
[2024-02-01 09:02] LABS: Hematocrit 31.3 % (41.0-53.0); Hemoglobin 10.1 g/dL (13.5-17.5); Mean Corpuscular Hemoglobin 30.8 pg (28.0-32.0); Mean Corpuscular Hgb Conc. 32.2 g/dL (32.0-36.0); Mean Corpuscular Volume 95.4 fL (80.0-100.0); Red Blood Cells 3.28 10^6/uL (4.5-5.90); White Blood Cell 7.5 10^3/uL (4.4-10.8)
[2024-02-01 09:05] LABS: Red Cell Distribution Width 20.1 % (11.8-14.3)
[2024-02-01 09:07] LABS: Basophils % (manual) 0 (0.0-2.0); Blast Cells 0; Eosinophils % (manual) 0 (0-7); Metamyelocytes % 0; Myelocytes % 0; Promyelocytes % 0; Reactive Lymphocytes 0
[2024-02-01 09:48] LABS: Anisocytosis Slight; Band Neutrophils % (manual) 5; Lymphocytes % (manual) 3 (10.0-50.0); Monocytes % (manual) 2 (0-12); Platelet Estimate Decreased
[2024-02-01 10:42] LABS: Alanine Aminotransferase 23 U/L (7-40); Alkaline Phosphatase 105 U/L (46-116); Anion Gap 5 (5-15); Aspartate Aminotransferase 32 U/L (13-40); BUN/Creatinine Ratio 13.8 (10.0-20.0); Bilirubin, Total 0.7 mg/dL (0.2-1.0); Blood Urea Nitrogen 20 mg/dL (9-23); Calcium 7.9 mg/dL (8.5-10.1); Carbon Dioxide 29 mmol/L (20-30); Chloride 117 mmol/L (98-107); Glucose 117 mg/dL (74-106); Potassium 3.3 mmol/L (3.5-5.1); Sodium 151 mmol/L (136-145); Total Protein 6.5 g/dL (5.7-8.2)
[2024-02-01 12:07] LABS: INR 1.35 (0.9-1.15)
[2024-02-01] MEDS: POTASSIUM CHL 20MEQ/100ML 100 ML IV SCH (13:11)
[2024-02-01] MEDS: D5W 5% 1,000 ML IV SCH (13:23)
[2024-02-01] MEDS ORDERED: MIDAZOLAM HCL 2MG/2ML 2ml VIAL (1mg/ml) ONE (15:17)
[2024-02-01] MEDS ORDERED: KETAMINE 50mg/ML 1ml syringe ONE (15:46)
[2024-02-01] MEDS ORDERED: PROPOFOL 10 MG/ML 20 ML IV ONE (15:56)
[2024-02-01] MEDS ORDERED: ONDANSETRON HCL 4 MG/2 ML VIAL ONE (15:58)
[2024-02-01] MEDS: SUCRALFATE 1 GM/10 ML ORAL SUSP PO SCH (17:54)
[2024-02-01] MEDS: NYSTATIN (MOUTH-THROAT) 500,000 UNITS/5 ML SUSP MT SCH (19:41)
[2024-02-02] VITALS (7 sets, daily range): BP systolic 101–115; BP diastolic 52–64; PULSE 70–83; RESP 15–21; TEMP 97.5–97.9; O2SAT 94–100
[2024-02-02 05:52] LABS: Basophils # (auto) 0 10 ^3/uL (0-0.2); Basophils % (auto) 0.5 % (0.0-2.0); Eosinophils # (auto) 0.1 10 ^3/uL (0-0.8); Hematocrit 28.7 % (41.0-53.0); Hemoglobin 9.2 g/dL (13.5-17.5); Lymphocytes # (auto) 0.3 10 ^3/uL (0.4-5.4); Lymphocytes % (auto) 3.7 % (10.0-50.0); Mean Corpuscular Hemoglobin 31.3 pg (28.0-32.0); Mean Corpuscular Hgb Conc. 32.1 g/dL (32.0-36.0); Mean Corpuscular Volume 97.4 fL (80.0-100.0); Monocytes # (auto) 0.2 10 ^3/uL (0-1.3); Monocytes % (auto) 3.1 % (0.0-12.0); Neutrophils # (auto) 6.8 10 ^3/uL (1.6-8.6); Neutrophils % (auto) 90.7 % (37.0-80.0); Nucleated Red Blood Cells % 0.1 %; Red Blood Cells 2.94 10^6/uL (4.5-5.90); Red Cell Distribution Width 20.2 % (11.8-14.3); White Blood Cell 7.5 10^3/uL (4.4-10.8)
[2024-02-02 06:14] LABS: % Iron Saturation 23.9 % (20-55)
[2024-02-02] MEDS: MORPHINE SULFATE 4 MG/ML SYR/VIAL IV PRN (11:54)
[2024-02-02] MEDS: SOD CHL 0.45% 1,000 ML IV SCH (11:54)
[2024-02-03] VITALS (9 sets, daily range): BP systolic 97–110; BP diastolic 61–66; PULSE 75–89; RESP 16–24; TEMP 97.6–98.4; O2SAT 98–100
[2024-02-03 04:50] LABS: Urine Bacteria FEW /hpf (None Seen); Urine Blood 1+ /uL (Negative); Urine Budding Yeast LOADED /hpf (None Seen); Urine Clarity Ex.Turbid (Clear); Urine Color Colorless (Yellow); Urine Mucus FEW (None Seen); Urine Protein, UAD 1+ (Negative); Urine Specific Gravity 1.011 (1.001-1.035); Urine Urobilinogen Normal (Negative); Urine WBC 190 /hpf (0 - 3); Urine pH 5.5 (5.0-9.0)
[2024-02-03] MEDS: APIXABAN 2.5 MG TAB PO SCH (21:19)
[2024-02-04] VITALS (8 sets, daily range): BP systolic 65–120; BP diastolic 60–74; PULSE 64–82; RESP 17–20; TEMP 97.5–98.6; O2SAT 96–100
[2024-02-04 06:07] LABS: Basophils # (auto) 0 10 ^3/uL (0-0.2); Basophils % (auto) 0.6 % (0.0-2.0); Eosinophils # (auto) 0.1 10 ^3/uL (0-0.8); Eosinophils % (auto) 2.3 % (0.0-7.0); Hematocrit 26.3 % (41.0-53.0); Hemoglobin 8.7 g/dL (13.5-17.5); Lymphocytes # (auto) 0.2 10 ^3/uL (0.4-5.4); Lymphocytes % (auto) 4.6 % (10.0-50.0); Mean Corpuscular Hemoglobin 31.8 pg (28.0-32.0); Mean Corpuscular Hgb Conc. 33.2 g/dL (32.0-36.0); Mean Corpuscular Volume 95.7 fL (80.0-100.0); Monocytes # (auto) 0.1 10 ^3/uL (0-1.3); Monocytes % (auto) 2.8 % (0.0-12.0); Neutrophils # (auto) 4.3 10 ^3/uL (1.6-8.6); Neutrophils % (auto) 89.7 % (37.0-80.0); Red Blood Cells 2.75 10^6/uL (4.5-5.90); Red Cell Distribution Width 18.9 % (11.8-14.3); White Blood Cell 4.8 10^3/uL (4.4-10.8)
[2024-02-04 06:21] LABS: Alanine Aminotransferase 11 U/L (7-40); Alkaline Phosphatase 82 U/L (46-116); Anion Gap 7 (5-15); Blood Urea Nitrogen 14 mg/dL (9-23); Calcium 7.8 mg/dL (8.7-10.4); Carbon Dioxide 26 mmol/L (20-30); Chloride 110 mmol/L (98-107); Glucose 157 mg/dL (74-106); Sodium 143 mmol/L (136-145)
[2024-02-04 06:22] LABS: Aspartate Aminotransferase 17 U/L (13-40); Bilirubin, Total 0.5 mg/dL (0.2-1.0); Phosphorus 2.3 mg/dL (2.4-5.1); Total Protein 6.4 g/dL (5.7-8.2)
[2024-02-04 06:38] LABS: Magnesium 1.6 mg/dL (1.6-2.6)
[2024-02-04] MEDS: FERROUS SULFATE 325mg EC TAB PO SCH (11:52)
[2024-02-04] MEDS: POTASSIUM CHL 20 Meq TABLET PO ONE ×2 (12:11→12:16)
[2024-02-04] MEDS: POTASSIUM PHOSPHATE 22 MEQ in SODIUM CHL 0.9% 100 ML IV ONE (13:06)
[2024-02-04] MEDS: ASCORBIC ACID 500 MG TAB PO SCH (21:10)
[2024-02-05] VITALS (8 sets, daily range): BP systolic 107–130; BP diastolic 59–77; PULSE 70–85; RESP 16–20; TEMP 97.8–98.5; O2SAT 96–100
[2024-02-05 06:19] LABS: Basophils # (auto) 0 10 ^3/uL (0-0.2); Basophils % (auto) 0.6 % (0.0-2.0); Eosinophils # (auto) 0.1 10 ^3/uL (0-0.8); Eosinophils % (auto) 2.2 % (0.0-7.0); Hematocrit 28.6 % (41.0-53.0); Hemoglobin 9.3 g/dL (13.5-17.5); Lymphocytes # (auto) 0.4 10 ^3/uL (0.4-5.4); Lymphocytes % (auto) 7.3 % (10.0-50.0); Mean Corpuscular Hemoglobin 31.6 pg (28.0-32.0); Mean Corpuscular Hgb Conc. 32.4 g/dL (32.0-36.0); Mean Corpuscular Volume 97.4 fL (80.0-100.0); Monocytes # (auto) 0.2 10 ^3/uL (0-1.3); Monocytes % (auto) 3.4 % (0.0-12.0); Neutrophils # (auto) 4.5 10 ^3/uL (1.6-8.6); Neutrophils % (auto) 86.5 % (37.0-80.0); Red Blood Cells 2.94 10^6/uL (4.5-5.90); Red Cell Distribution Width 19.1 % (11.8-14.3); White Blood Cell 5.2 10^3/uL (4.4-10.8)
[2024-02-05 06:39] LABS: Alanine Aminotransferase 12 U/L (7-40); Albumin 2.1 g/dL (3.2-4.8); Alkaline Phosphatase 95 U/L (46-116); Anion Gap 6 (5-15); Aspartate Aminotransferase 21 U/L (13-40); BUN/Creatinine Ratio 11.6 (10.0-20.0); Blood Urea Nitrogen 15 mg/dL (9-23); Carbon Dioxide 24 mmol/L (20-30); Chloride 112 mmol/L (98-107); Glucose 151 mg/dL (74-106); Potassium 3.6 mmol/L (3.5-5.1); Sodium 142 mmol/L (136-145)
[2024-02-05 06:40] LABS: Bilirubin, Total 0.5 mg/dL (0.2-1.0); Total Protein 6.7 g/dL (5.7-8.2)
[2024-02-05] MEDS: DOXYCYCLINE 100 MG TAB/CAP PO SCH (15:50)
[2024-02-06] VITALS (8 sets, daily range): BP systolic 105–115; BP diastolic 61–70; PULSE 60–95; RESP 17–22; TEMP 97.6–98.7; O2SAT 93–97
[2024-02-06 06:45] LABS: Chloride 113 mmol/L (98-107); Potassium 3.8 mmol/L (3.5-5.1); Sodium 143 mmol/L (136-145)
[2024-02-06 06:46] LABS: Anion Gap 4 (5-15); Carbon Dioxide 26 mmol/L (20-30)
[2024-02-06 06:47] LABS: Calcium 8.4 mg/dL (8.7-10.4)
[2024-02-06 06:52] LABS: BUN/Creatinine Ratio 14.7 (10.0-20.0); Blood Urea Nitrogen 20 mg/dL (9-23); Glucose 151 mg/dL (74-106)
[2024-02-06 07:02] LABS: Basophils # (auto) 0 10 ^3/uL (0-0.2); Basophils % (auto) 0.7 % (0.0-2.0); Eosinophils # (auto) 0.1 10 ^3/uL (0-0.8); Eosinophils % (auto) 1.7 % (0.0-7.0); Hematocrit 27.7 % (41.0-53.0); Hemoglobin 8.8 g/dL (13.5-17.5); Lymphocytes # (auto) 0.4 10 ^3/uL (0.4-5.4); Lymphocytes % (auto) 7.3 % (10.0-50.0); Mean Corpuscular Hemoglobin 30.8 pg (28.0-32.0); Mean Corpuscular Hgb Conc. 31.8 g/dL (32.0-36.0); Mean Corpuscular Volume 96.9 fL (80.0-100.0); Monocytes # (auto) 0.2 10 ^3/uL (0-1.3); Monocytes % (auto) 3.7 % (0.0-12.0); Neutrophils # (auto) 5.2 10 ^3/uL (1.6-8.6); Neutrophils % (auto) 86.6 % (37.0-80.0); Nucleated Red Blood Cells % 0.2 %; Red Blood Cells 2.86 10^6/uL (4.5-5.90); Red Cell Distribution Width 19.2 % (11.8-14.3)
[2024-02-06] MEDS: metroNIDAZOLE 500 MG TAB PO SCH (13:47)
[2024-02-07] VITALS (8 sets, daily range): BP systolic 110–124; BP diastolic 56–83; PULSE 57–90; RESP 16–18; TEMP 97.7–98.4; O2SAT 92–96
[2024-02-07] MEDS: HYDROCORTISONE ACET 25 MG RECTAL SUPP PR SCH (00:17)
[2024-02-07 11:14] LABS: Basophils # (auto) 0 10 ^3/uL (0-0.2); Basophils % (auto) 0.5 % (0.0-2.0); Eosinophils # (auto) 0 10 ^3/uL (0-0.8); Eosinophils % (auto) 0.6 % (0.0-7.0); Hematocrit 27.3 % (41.0-53.0); Hemoglobin 8.7 g/dL (13.5-17.5); Lymphocytes # (auto) 0.4 10 ^3/uL (0.4-5.4); Lymphocytes % (auto) 8.1 % (10.0-50.0); Mean Corpuscular Hemoglobin 31.4 pg (28.0-32.0); Monocytes # (auto) 0.2 10 ^3/uL (0-1.3); Monocytes % (auto) 3.9 % (0.0-12.0); Neutrophils # (auto) 3.8 10 ^3/uL (1.6-8.6); Neutrophils % (auto) 86.9 % (37.0-80.0); Nucleated Red Blood Cells % 0.2 %; Red Blood Cells 2.78 10^6/uL (4.5-5.90); Red Cell Distribution Width 19.1 % (11.8-14.3); White Blood Cell 4.3 10^3/uL (4.4-10.8)
[2024-02-07 11:28] LABS: Chloride 109 mmol/L (98-107); Potassium 3.1 mmol/L (3.5-5.1)
[2024-02-07 11:29] LABS: Sodium 143 mmol/L (136-145)
[2024-02-07 11:30] LABS: Anion Gap 8 (5-15); Calcium 8.6 mg/dL (8.7-10.4); Carbon Dioxide 26 mmol/L (20-30)
[2024-02-07 11:35] LABS: BUN/Creatinine Ratio 15.8 (10.0-20.0); Blood Urea Nitrogen 21 mg/dL (9-23)
[2024-02-07 11:38] LABS: Glucose 333 mg/dL (74-106)
[2024-02-08] VITALS (8 sets, daily range): BP systolic 96–131; BP diastolic 44–79; PULSE 71–89; RESP 16–18; TEMP 97.6–98.3; O2SAT 94–98
[2024-02-08 07:29] LABS: Anion Gap 7 (5-15); Carbon Dioxide 25 mmol/L (20-30); Chloride 112 mmol/L (98-107); Potassium 2.7 mmol/L (3.5-5.1); Sodium 144 mmol/L (136-145)
[2024-02-08 07:30] LABS: Basophils # (auto) 0 10 ^3/uL (0-0.2); Calcium 8.2 mg/dL (8.7-10.4); Eosinophils # (auto) 0.1 10 ^3/uL (0-0.8); Hemoglobin 8.1 g/dL (13.5-17.5); Lymphocytes # (auto) 0.4 10 ^3/uL (0.4-5.4); Monocytes # (auto) 0.2 10 ^3/uL (0-1.3); Monocytes % (auto) 4.7 % (0.0-12.0); Neutrophils % (auto) 83.6 % (37.0-80.0)
[2024-02-08 07:32] LABS: Basophils % (auto) 0.5 % (0.0-2.0); Eosinophils % (auto) 1.3 % (0.0-7.0); Hematocrit 25.3 % (41.0-53.0); Lymphocytes % (auto) 9.9 % (10.0-50.0); Mean Corpuscular Hemoglobin 31.1 pg (28.0-32.0); Mean Corpuscular Hgb Conc. 32.1 g/dL (32.0-36.0); Mean Corpuscular Volume 97.1 fL (80.0-100.0); Neutrophils # (auto) 3.3 10 ^3/uL (1.6-8.6); Nucleated Red Blood Cells % 0.1 %; Red Cell Distribution Width 18.6 % (11.8-14.3)
[2024-02-08 07:35] LABS: BUN/Creatinine Ratio 13.5 (10.0-20.0); Blood Urea Nitrogen 17 mg/dL (9-23)
[2024-02-08 07:39] LABS: Glucose 160 mg/dL (74-106)
[2024-02-08] MEDS: POTASSIUM CHLORIDE 60 MEQ, LIDOCAINE 1% (LOCAL ANESTH.) 6 ML in SODIUM CHL 0.9% 500 ML IV ONE (13:51)
[2024-02-09 01:00] VITALS: BP 122/56; PULSE 71; RESP 18; TEMP 97.6; O2SAT 97
[2024-02-09 05:00] VITALS: BP 112/56; PULSE 67; RESP 20; TEMP 97.2; O2SAT 96
[2024-02-09] MEDS: ACETAMINOPHEN/CODEINE#3 (300/30mg) TAB PO PRN (06:34)
[2024-02-09 06:37] LABS: Anion Gap 7 (5-15); Calcium 8.1 mg/dL (8.7-10.4); Carbon Dioxide 25 mmol/L (20-30); Chloride 113 mmol/L (98-107); Potassium 3.5 mmol/L (3.5-5.1); Sodium 145 mmol/L (136-145)
[2024-02-09 06:43] LABS: BUN/Creatinine Ratio 13.4 (10.0-20.0); Blood Urea Nitrogen 18 mg/dL (9-23); Glucose 117 mg/dL (74-106)
[2024-02-09 06:44] LABS: Basophils # (auto) 0 10 ^3/uL (0-0.2); Basophils % (auto) 0.5 % (0.0-2.0); Eosinophils # (auto) 0.1 10 ^3/uL (0-0.8); Eosinophils % (auto) 1.6 % (0.0-7.0); Hematocrit 27.8 % (41.0-53.0); Hemoglobin 8.7 g/dL (13.5-17.5); Lymphocytes # (auto) 0.5 10 ^3/uL (0.4-5.4); Lymphocytes % (auto) 7.9 % (10.0-50.0); Mean Corpuscular Hemoglobin 30.8 pg (28.0-32.0); Mean Corpuscular Hgb Conc. 31.2 g/dL (32.0-36.0); Monocytes # (auto) 0.3 10 ^3/uL (0-1.3); Monocytes % (auto) 3.9 % (0.0-12.0); Neutrophils # (auto) 5.6 10 ^3/uL (1.6-8.6); Neutrophils % (auto) 86.1 % (37.0-80.0); Nucleated Red Blood Cells % 0.3 %; Red Blood Cells 2.81 10^6/uL (4.5-5.90); Red Cell Distribution Width 19.3 % (11.8-14.3); White Blood Cell 6.5 10^3/uL (4.4-10.8)
[2024-02-09 08:00] VITALS: PULSE 73
[2024-02-09 08:25] VITALS: BP 107/55; PULSE 74; RESP 19; TEMP 97.5; O2SAT 96
[2024-02-09 12:36] VITALS: BP 123/65; PULSE 73; RESP 18; TEMP 97.6; O2SAT 98
== END 2024-02-09 12:15 | DRG 871 ==
LOC: ER 23:46 → OVERFLOW 01-21 07:21 → TELE-WESTW 01-21 22:45
PROVIDERS: ADMIT Nurse Practitioner; ATTEND Nurse Practitioner
PROC: 30233N1 Transfusion of Nonautologous Red Blood Cells into Peripheral Vein, Percutaneous Approach (ICD-10-PCS; 2024-01-22)
PROC: 4B02XTZ Measurement of Cardiac Defibrillator, External Approach (ICD-10-PCS; 2024-01-25)
PROC: 0W9B3ZZ Drainage of Left Pleural Cavity, Percutaneous Approach (ICD-10-PCS; 2024-01-26)
PROC: 0W993ZZ Drainage of Right Pleural Cavity, Percutaneous Approach (ICD-10-PCS; 2024-01-29)
PROC: 0DB58ZX Excision of Esophagus, Via Natural or Artificial Opening Endoscopic, Diagnostic (ICD-10-PCS; 2024-02-01)
PROC: 0DBN8ZX Excision of Sigmoid Colon, Via Natural or Artificial Opening Endoscopic, Diagnostic (ICD-10-PCS; 2024-02-01)
PROC: 0DBL8ZX Excision of Transverse Colon, Via Natural or Artificial Opening Endoscopic, Diagnostic (ICD-10-PCS; 2024-02-01)
PROC: 0DB98ZX Excision of Duodenum, Via Natural or Artificial Opening Endoscopic, Diagnostic (ICD-10-PCS; principal; 2024-02-01 15:17)
PROC: 0DB68ZX Excision of Stomach, Via Natural or Artificial Opening Endoscopic, Diagnostic (ICD-10-PCS; 2024-02-01 15:17)
DX: A41.9 Sepsis, unspecified organism (principal); G93.41 Metabolic encephalopathy; N17.0 Acute kidney failure with tubular necrosis; J96.01 Acute respiratory failure with hypoxia; K22.11 Ulcer of esophagus with bleeding; K29.71 Gastritis, unspecified, with bleeding; K57.31 Diverticulosis of large intestine without perforation or abscess with bleeding; J15.69 Pneumonia due to other Gram-negative bacteria; J15.9 Unspecified bacterial pneumonia; I50.22 Chronic systolic (congestive) heart failure; I13.0 Hypertensive heart and chronic kidney disease with heart failure and stage 1 through stage 4 chronic kidney disease, or unspecified chronic kidney disease; E87.1 Hypo-osmolality and hyponatremia; N13.2 Hydronephrosis with renal and ureteral calculous obstruction; Z68.41 Body mass index [BMI] 40.0-44.9, adult; E87.0 Hyperosmolality and hypernatremia; J44.0 Chronic obstructive pulmonary disease with (acute) lower respiratory infection; D68.9 Coagulation defect, unspecified; I25.10 Atherosclerotic heart disease of native coronary artery without angina pectoris; K74.60 Unspecified cirrhosis of liver; E11.22 Type 2 diabetes mellitus with diabetic chronic kidney disease; D63.8 Anemia in other chronic diseases classified elsewhere; D69.6 Thrombocytopenia, unspecified; Z95.1 Presence of aortocoronary bypass graft; I25.5 Ischemic cardiomyopathy; I27.20 Pulmonary hypertension, unspecified; I48.0 Paroxysmal atrial fibrillation; E86.0 Dehydration; E78.5 Hyperlipidemia, unspecified; N18.9 Chronic kidney disease, unspecified; E87.5 Hyperkalemia; E66.01 Morbid (severe) obesity due to excess calories; K63.5 Polyp of colon; K64.8 Other hemorrhoids; F17.200 Nicotine dependence, unspecified, uncomplicated; K44.9 Diaphragmatic hernia without obstruction or gangrene; K80.20 Calculus of gallbladder without cholecystitis without obstruction; Z95.2 Presence of prosthetic heart valve; Z79.01 Long term (current) use of anticoagulants; Z79.891 Long term (current) use of opiate analgesic; Z79.899 Other long term (current) drug therapy; Z79.82 Long term (current) use of aspirin; Z80.0 Family history of malignant neoplasm of digestive organs; Z82.49 Family history of ischemic heart disease and other diseases of the circulatory system; Z85.028 Personal history of other malignant neoplasm of stomach; Z95.3 Presence of xenogenic heart valve; Z87.11 Personal history of peptic ulcer disease; I25.2 Old myocardial infarction; Z87.442 Personal history of urinary calculi; Z95.0 Presence of cardiac pacemaker; Z98.61 Coronary angioplasty status; Z68.23 Body mass index [BMI] 23.0-23.9, adult
CPT/HCPCS: 32555; 36415; 70450; 71045; 71250; 74018; 74176; 76604; 76775; 76942; 80048; 80053; 80074; 81001; 82270; 82306; 82570; 82607; 82746; 82962; 83540; 83550; 83605; 83735; 83880; 83970; 83986; 84100; 84132; 84156; 84300; 85007; 85025; 85027; 85610; 86850; 86900; 86901; 86920; 87076; 87081; 87205; 89051; 93005; 97110; 97116; 97163; 97530; C9113; G0378; J1756; J1815; J2001; J2250; J2405; J2543; J2704; J3480